=== PATIENT | male | born 1945 | race Caucasian/White ===

== ENCOUNTER 2021-08-17 20:05 | Emergency (ER) | payer MEDICARE ==
[~2021-08-17] VITALS: Ht 177.8 cm; Wt 113.4 kg
[2021-08-17] MEDS ORDERED: ROSU10TA (20:18)
[2021-08-17] MEDS ORDERED: XARELTO10 M1 (20:18)
== END 2021-08-17 23:24 | disposition home or self-care (01) ==
LOC: ER 20:05
DX: S80.02XA Contusion of left knee, initial encounter (principal); M54.50 Low back pain, unspecified; G89.29 Other chronic pain; W18.30XA Fall on same level, unspecified, initial encounter; Y92.009 Unspecified place in unspecified non-institutional (private) residence as the place of occurrence of the external cause; Z79.899 Other long term (current) drug therapy; Z79.01 Long term (current) use of anticoagulants
CPT/HCPCS: 72100; 73562-LT

== ENCOUNTER 2021-09-27 11:25 | Emergency (ER) | payer MEDICARE ==
[~2021-09-27] VITALS: Ht 177.8 cm; Wt 113.4 kg
[~2021-09-27 11:25] MED LIST: ROSU10TA; XARELTO10 M1
[2021-09-27 13:04] LABS: Influenza A, PCR NEGATIVE (NEGATIVE); Influenza B, PCR NEGATIVE (NEGATIVE); Resp Syncytial Virus, PCR NEGATIVE (NEGATIVE)
[2021-09-27 13:09] LABS: SARS-Cov-2 (COVID-19) PCR, MMC POSITIVE (NEGATIVE)
== END 2021-09-27 15:57 | disposition home or self-care (01) ==
LOC: ER 11:25
PROVIDERS: Student in an Organized Health Care Education/Training Program
DX: U07.1 COVID-19 (principal); Z79.899 Other long term (current) drug therapy; Z79.01 Long term (current) use of anticoagulants; I10 Essential (primary) hypertension; E11.9 Type 2 diabetes mellitus without complications; E66.3 Overweight; Z68.35 Body mass index [BMI] 35.0-35.9, adult; Z28.310 Unvaccinated for COVID-19
CPT/HCPCS: 0241U; 36415; J7030

== ENCOUNTER → 2021-10-17 | Outpatient (CLI) | payer MEDICARE ==
[2021-10-18 12:33] LABS: Stool Occult Bld Immuno 1 Negative (NEGATIVE)
== END | disposition home or self-care (01) ==
LOC: LAB 19:12 → LAB SHORT 19:12
PROVIDERS: Family Medicine
DX: Z12.11 Encounter for screening for malignant neoplasm of colon (principal)
CPT/HCPCS: G0328

== ENCOUNTER 2022-06-27 11:39 | Emergency (ER) | payer OTHER ==
[~2022-06-27] VITALS: Ht 167.6 cm; Wt 127.0 kg
[2022-06-27 11:48] VITALS: BP 135/77
== END 2022-06-27 12:30 | disposition left against medical advice (07) ==
LOC: ER 11:39
DX: R00.1 Bradycardia, unspecified (principal)
CPT/HCPCS: 71046; 99284-25

== ENCOUNTER 2022-12-18 13:14 | Emergency (ER) | payer OTHER ==
[~2022-12-18] VITALS: Ht 177.8 cm; Wt 113.4 kg
[2022-12-18 13:43] VITALS: BP 146/81
[2022-12-18 14:30] LABS: Source, Urine Clean Catch
[2022-12-18 14:38] LABS: Appearance, Urine Clear (Clear); Bilirubin, Urine Neg (Neg); Blood, Urine Neg (Neg); Color, Urine Yellow (P-Yellow); Glucose Qualitative, Urine Neg (Neg); Ketones, Urine Neg (Neg); Leukocyte Esterase, Urine Neg (Neg); Nitrite, Urine Neg (Neg); Protein, Urine Neg (Neg); Urobilinogen, Urine NORM (Normal)
== END 2022-12-18 15:20 | disposition home or self-care (01) ==
LOC: ER 13:14
PROVIDERS: Student in an Organized Health Care Education/Training Program
DX: R35.0 Frequency of micturition (principal); R30.0 Dysuria; Z79.01 Long term (current) use of anticoagulants; Z79.899 Other long term (current) drug therapy
CPT/HCPCS: 81003; 99283

== ENCOUNTER 2024-04-22 17:30 | Inpatient (IN) | payer OTHER ==
[~2024-04-22] VITALS: Ht 177.8 cm; Wt 116.0 kg
[~2024-04-22 17:30] MED LIST changes: -ASPI81CH PO; -CAPSAICIN60 G1 TOP; -CIPR500 PO; -DOCU100 PO; -Flomax0.4 MG PO; -METO100 PO; -MIRALAX17 GM PO; -OXYB5; -OXYC5; -OXYC5 PO; -PHENA200; -PREDNISONE PO; -VISBIOME 112.51 EACH PO; -Vitamin D1000 UNI1 PO
[2024-04-22] MEDS ORDERED: NS 1,000 ML IV SCH ×2 (17:55→19:55)
[2024-04-22 18:05] LABS: BASOPHILS ABSOLUTE AUTO 0.06 K/mm3 (0.00-0.23); BASOPHILS PERCENT AUTO 0 % (0-2); EOSINOPHILS ABSOLUTE AUTO 0.02 K/mm3 (0.00-0.68); EOSINOPHILS PERCENT AUTO 0 % (0-6); Hemoglobin 15.2 g/dL (13.5-17.5); IMMATURE GRAN ABSOLUTE AUTO 0.09 K/mm3 (0.00-0.10); IMMATURE GRAN PERCENT AUTO 1 % (0-1); LYMPHOCYTES ABSOLUTE AUTO 0.67 K/mm3 (0.84-5.20); LYMPHOCYTES PERCENT AUTO 4 % (21-46); MONOCYTES ABSOLUTE AUTO 1.07 K/mm3 (0.16-1.47); MONOCYTES PERCENT AUTO 6 % (4-13); Mean Corpuscular HGB 29.3 pg (26.0-34.0); Mean Corpuscular Volume 89 fL (80-100); Mean Platelet Volume 10.4 fL (9.1-12.4); NEUTROPHILS PERCENT AUTO 89 % (41-73); Platelet Count 241 K/mm3 (150-400); RDW Standard Deviation 42.3 fL (35.1-46.3); Red Blood Cell Count 5.19 M/mm3 (4.30-5.90); White Blood Cell Count 17.41 K/mm3 (4.00-11.30)
[2024-04-22 18:20] LABS: Albumin, Blood 3.4 g/dL (3.4-5.0); Albumin/Globulin Ratio 0.9 (0.8-1.8); Bilirubin, Total 0.7 mg/dL (0.1-1.0); Bun/Creatinine Ratio 16.9 (12.0-20.0); Calcium, Blood 8.6 mg/dL (8.5-10.1); Creatinine, Blood 0.77 mg/dL (0.60-1.20); Globulin, Blood 3.8 g/dL (2.2-4.0); Potassium, Blood 4.4 mmol/L (3.5-5.5); Total Protein, Blood 7.2 g/dL (6.4-8.2)
[2024-04-22 19:03] LABS: Influenza A, PCR NEGATIVE (NEGATIVE); Influenza B, PCR NEGATIVE (NEGATIVE); Resp Syncytial Virus, PCR NEGATIVE (NEGATIVE); SARS-Cov-2 (COVID-19) PCR, MMC NEGATIVE (NEGATIVE)
[2024-04-22 19:18] LABS: Source, Urine Clean Catch
[2024-04-22] MEDS ORDERED: CefTRIAXone Sodium 2,000 MG in NS 100 ML IV ONE (19:20)
[2024-04-22 19:28] LABS: Appearance, Urine Hazy (Clear); Bilirubin, Urine Neg (Neg); Blood, Urine 5+ (Neg); Color, Urine Yellow (P-Yellow); Glucose Qualitative, Urine 3+ (Neg); Ketones, Urine Neg (Neg); Leukocyte Esterase, Urine 3+ (Neg); Nitrite, Urine Pos (Neg); Protein, Urine 3+ (Neg); Urobilinogen, Urine NORM (Normal)
[2024-04-22] MEDS ORDERED: Albuterol 2.5 MG/3 ML VIAL INH SCH (19:35)
[2024-04-22] MEDS ORDERED: Ipratropium Bromide INH 0.02% 0.5 mg/2.5ML Vial INH SCH (19:35)
[2024-04-22] MEDS ORDERED: MethylPREDNISolone Sod Succ 125 MG Vial IV ONE (19:40)
[2024-04-22] MEDS ORDERED: Azithromycin 500 MG in NS 250 ML IV ONE (19:45)
[2024-04-22 19:47] LABS: Squamous Epithelial Cells Few /hpf (Few)
[2024-04-22 19:48] LABS: Bacteria Mod /hpf
[2024-04-22 19:49] LABS: White Blood Cells, Urine 50-100 /hpf (0-5)
[2024-04-22 19:50] LABS: Base Excess Venous 0.7 mmol/L; Bicarbonate Venous 24.3 mmol/L (24.0-30.0); PCO2 Venous 37.8 mmHg (38-42); pH Blood Venous 7.43 (7.34-7.37)
[2024-04-22] MEDS ORDERED: Ipratropium/Albuterol SulF 2.5-0.5MG/3 ML Amp INH SCH (21:00)
[2024-04-22] MEDS ORDERED: Insulin Regular 100 UNIT/ML 10ML Vial SC SCH (21:00)
[2024-04-22] MEDS ORDERED: Magnesium Hydroxide Conc 10 ML UDC PO PRN (21:05)
[2024-04-22] MEDS ORDERED: FLU VACC TS2024-25(6MOS UP)/PF 45 MCG/0.5 ML SYRINGE IM ONE (21:05)
[2024-04-22 23:15] VITALS: BP 130/65
[2024-04-22] MEDS ORDERED: OXYB5 (23:49)
[2024-04-22] MEDS ORDERED: OXYC5 (23:50)
[2024-04-23] VITALS (11 sets, daily range): BP systolic 114–154; BP diastolic 62–96
[2024-04-23] MEDS ORDERED: MethylPREDNISolone Sod Succ 40 MG VIAL IV SCH (04:00)
[2024-04-23 04:42] LABS: BASOPHILS ABSOLUTE AUTO 0.03 K/mm3 (0.00-0.23); BASOPHILS PERCENT AUTO 0 % (0-2); EOSINOPHILS PERCENT AUTO 0 % (0-6); Hematocrit 44.3 % (37.0-53.0); Hemoglobin 14.3 g/dL (13.5-17.5); IMMATURE GRAN ABSOLUTE AUTO 0.11 K/mm3 (0.00-0.10); IMMATURE GRAN PERCENT AUTO 1 % (0-1); LYMPHOCYTES ABSOLUTE AUTO 0.64 K/mm3 (0.84-5.20); LYMPHOCYTES PERCENT AUTO 4 % (21-46); MONOCYTES PERCENT AUTO 2 % (4-13); Mean Corpuscular HGB 29.3 pg (26.0-34.0); Mean Corpuscular HGB Conc 32.3 g/dL (31.5-36.5); Mean Corpuscular Volume 91 fL (80-100); NEUTROPHILS ABSOLUTE AUTO 16.87 K/mm3 (1.96-9.15); NEUTROPHILS PERCENT AUTO 94 % (41-73); Platelet Count 228 K/mm3 (150-400); RDW Coefficient Variation 13.2 % (11.7-14.2); RDW Standard Deviation 44.1 fL (35.1-46.3); Red Blood Cell Count 4.88 M/mm3 (4.30-5.90); White Blood Cell Count 17.95 K/mm3 (4.00-11.30)
[2024-04-23 05:06] LABS: Albumin, Blood 3.3 g/dL (3.4-5.0); Albumin/Globulin Ratio 0.8 (0.8-1.8); Bilirubin, Total 0.7 mg/dL (0.1-1.0); Bun/Creatinine Ratio 20.6 (12.0-20.0); Calcium, Blood 8.4 mg/dL (8.5-10.1); Creatinine, Blood 0.73 mg/dL (0.60-1.20); Globulin, Blood 3.9 g/dL (2.2-4.0); Potassium, Blood 4.5 mmol/L (3.5-5.5); Total Protein, Blood 7.2 g/dL (6.4-8.2)
--- NOTE | 2024-04-23 06:19 | NUR ---
SHIFT SUMMARY PT HAS BEEN SLEEPING SINCE ADMISSION,USED HIS HOME CPAP WHILE SLEEPING.A&O X3 BUT FORGETFUL.DILTIAZEM GTT AT 15ML/HR,HR 76-114BPM.BP STABLE.PT DENIES PAIN,DENIES NEEDS.CALL LIGHT AND PT'S ITEMS WITHIN REACH.WILL GIVE REPORT TO DAYSHIFT NURSE FOR CONTINUITY OF CARE.
[2024-04-23] MEDS ORDERED: ALBU90OI INH (07:54)
[2024-04-23] MEDS ORDERED: ASPI81CH PO (07:55)
[2024-04-23] MEDS ORDERED: CAPSAICIN60 G1 TOP (07:55)
[2024-04-23] MEDS ORDERED: Vitamin D1000 UNI1 PO (07:56)
[2024-04-23] MEDS ORDERED: METF500 PO (07:56)
[2024-04-23] MEDS ORDERED: OXYC5 PO (07:57)
[2024-04-23] MEDS ORDERED: Flomax0.4 MG PO (07:58)
[2024-04-23] MEDS ORDERED: PHENA200 (07:58)
[2024-04-23] MEDS ORDERED: Metoprolol Tartrate 25 MG Tab PO SCH (09:00)
[2024-04-23] MEDS ORDERED: Tamsulosin HCl 0.4 MG Cap PO SCH (09:00)
[2024-04-23] MEDS ORDERED: Aspirin 81 MG Chew PO SCH (09:00)
[2024-04-23] MEDS ORDERED: Lactobacil 2-S.Thermo-Bifido 1 1 Cap PO SCH (09:00)
[2024-04-23] MEDS ORDERED: Cholecalciferol 1000 Unit Tablet (=25MCG) PO SCH (09:00)
[2024-04-23] MEDS ORDERED: Enoxaparin 40 MG/0.4 ML SYR SC SCH (09:00)
[2024-04-23] MEDS ORDERED: OxyCODONE HCL 5 MG TAB PO PRN (09:00)
--- NOTE | 2024-04-23 13:01 | NUR ---
DILTIAZEM STOPPED AT 1300. HR 65
[2024-04-23] MEDS ORDERED: CefTRIAXone Sodium 2,000 MG in NS 100 ML IV SCH (14:00)
--- NOTE | 2024-04-23 17:51 | NUR ---
SHIFT SUMMARY; ASSUMED CARE AT 0700 WITH JOSUÉ CAPONE RN. A/A/OX4 DURING SHIFT. CPAP WHEN SLEEPING. FAMILY AT BEDSIDE DURING SHIFT. INSULIN PER EMAR. REPOSITIONS IN BED WITH ASSISTANCE, PURWICK IN PLACE. DEBORA LAMB DC'Barney TODAY AT, PO METOPROLOL STARTED. AFIB 80-90. WILL CONTINUE TO MONITOR AND TREAT UNTIL REPORT GIVEN TO NOC SHIFT RN TO ASSUME CARE.
--- NOTE | 2024-04-23 19:31 | NUR ---
ASSUMPTION OF CARE ASSUMED PT'S CARE AT 1900,BEDSIDE REPORT COMPLETED.PT LAYING IN BED,APPEARS TO BE SLEEPING WITH THE CPAP ON.OPENS EYES UPON THIS NURSE ENTERING THE ROOM.PT DENIES PAIN,DENIES NEEDS.PLAN OF CARE REVIEWED.CALL LIGHT AND PT'S ITEMS WITHIN REACH,DANISHA CONTINUE TO MONITOR.
[2024-04-23] MEDS ORDERED: CefTRIAXone Sodium 1,000 MG in NS 100 ML IV SCH (20:00)
[2024-04-23] MEDS ORDERED: Azithromycin 500 MG in NS 250 ML IV SCH (20:00)
[2024-04-24] VITALS (7 sets, daily range): BP systolic 107–130; BP diastolic 69–95
[2024-04-24 04:06] LABS: Hematocrit 40.6 % (37.0-53.0); Hemoglobin 13.4 g/dL (13.5-17.5); Mean Corpuscular HGB 29.6 pg (26.0-34.0); Mean Corpuscular Volume 90 fL (80-100); Mean Platelet Volume 10.6 fL (9.1-12.4); Platelet Count 257 K/mm3 (150-400); RDW Coefficient Variation 13.1 % (11.7-14.2); Red Blood Cell Count 4.53 M/mm3 (4.30-5.90); White Blood Cell Count 21.64 K/mm3 (4.00-11.30)
--- NOTE | 2024-04-24 06:37 | NUR ---
PT SLEPT MOST OF THE NIGHT,USED HOME CPAP WHILE SLEEPING.HR AND BP WNL.PT DENIES PAIN,DENIES NEEDS AT THIS TIME.CALL LIGHT AND PT'S ITEMS WITHIN REACH.WILL GIVE REPORT TO DAYSHIFT NURSE FOR CONTINUITY OF CARE.
[2024-04-24] MEDS ORDERED: Metoprolol Tartrate 1 MG/ML 5 ML VIAL IV PRN (09:00)
[2024-04-24] MEDS ORDERED: Metoprolol Tartrate 50 MG Tab PO SCH (09:00)
[2024-04-24] MEDS ORDERED: Metoprolol Tartrate 1 MG/ML 5 ML VIAL IV ONE (09:00)
[2024-04-24] MEDS ORDERED: Insulin NPH 100 Unit / ML 10ML Vial SC ONE (12:25)
--- NOTE | 2024-04-24 17:17 | NUR ---
SHIFT SUMMARY: ASSUMED CARE AT 0700. A&OX4. AFIB 100'S-120'S. METOPROLOL DOSE INCREASE TO 50 MG AND PRN LOPRESOR ORDERED BY DR. AJRAMILLO FOR HR SUSTAINED OVER 120. PT HR RESPONSE TO 50 MG METOPROLOL AFIB 80'S-110'S DURING SHIFT. BREATHING TREATMENTS PRN. CPAP WHILE SLEEPING. WICKING SYSTEM IN PLACE FOR INCONTINENCE. PT C/O OF CONSTIPATION. PT REPORTS LAST KNOWN BM OF ONE WEEK. TELEPHONE CALL TO DR. JARAMILLO FOR BOWEL MEDS ORDERED. BLOOD SUGARS REMAINED ELEVATED DURING. SLIDING SCALE PER EMAR. ONE TIME NPH 10 UNITS GIVEN. PT UP IN CHAIR WITH ONE PERSON ASSIST. BED BATH COMPLETED TODAY WITH GOWN AND LINEN CHANGE. WILL CONTINUE TO MONITOR AND TREAT UNTIL REPORT IS GIVEN TO NOC SHIFT.
[2024-04-24] MEDS ORDERED: Docusate Sodium 100 MG Cap PO SCH (17:20)
--- NOTE | 2024-04-24 19:35 | NUR ---
ASSUMPTION OF CARE ASSUMED PT'S CARE AT 1900,BEDSIDE REPORT COMPLETED.PT SITTING UP IN CHAIR.PT ASSISTED TO THE BATHROOM WITH ONE ASSIST AND A WALKER.PT'S HR ELEVATED AT 130-160'S WHILE IN THE TOILET.PT HAD A BOWEL MOVEMENT AND BACK TO CHAIR.HR DOWN TO 98-120'S.PT DENIES CHEST PAIN,DENIES SOB.PLAN OF CARE REVIEWED.CALL LIGHT AND PT'S ITEMS WITHIN REACH,CHAIR ALARM IN USE.DENIES NEEDS AT THIS TIME,WILL CONTINUE TO MONITOR.
[2024-04-25] VITALS (8 sets, daily range): BP systolic 116–144; BP diastolic 67–99
[2024-04-25 03:51] LABS: Hematocrit 39.7 % (37.0-53.0); Hemoglobin 13.3 g/dL (13.5-17.5); Mean Corpuscular HGB 29.5 pg (26.0-34.0); Mean Corpuscular HGB Conc 33.5 g/dL (31.5-36.5); Mean Corpuscular Volume 88 fL (80-100); Mean Platelet Volume 10.3 fL (9.1-12.4); Platelet Count 251 K/mm3 (150-400); RDW Coefficient Variation 13.2 % (11.7-14.2); RDW Standard Deviation 42.8 fL (35.1-46.3); Red Blood Cell Count 4.51 M/mm3 (4.30-5.90); White Blood Cell Count 8.77 K/mm3 (4.00-11.30)
--- NOTE | 2024-04-25 06:29 | NUR ---
PT HAD TO GET OUT OF BED FREQUENTLY TO URINATE.PT'S HR WITH ACTIVITY WOULD GO UPTO 170.PT ALSO REPORTED SOB WITH ACTIVITY.PRN LOPRESSOR 5MG IV GIVEN AT 2239,HR CAME DOWN TO 98-130 IRREGULAR.HR DID NOT SUSTAIN AT 130.PLACED MALE PUREWICK AND PT WAS ABLE TO SLEEP.TOLERATED THE CPAP.PT STILL SLEEPING AT THIS TIME.NO S/S OF PAIN/DISCOMFORT NOTED.WILL GIVE REPORT TO DAYSOHFT NURSE FOR CONTINUITY OF CARE.CALL LIGHT AND PT'S ITEMS WITHIN REACH.
[2024-04-25] MEDS ORDERED: Metoprolol Tartrate 50 MG Tab PO SCH ×2 (09:00→21:00)
[2024-04-25] MEDS ORDERED: Polyethylene Glycol 3350 17 gm PO SCH (09:00)
--- NOTE | 2024-04-25 18:11 | NUR ---
SHIFT SUMMARY: ASSUMED CARE AT 0700. A/OX4. INCREASED HR WITH EXERCERTION. AFIB 100-170S. PT REPORTED SOB AND FEELING DIZZY. 5 MG LOPRESSOR PUSH GIVEN. HR DECREASED TO 90'S AND PT REPORTS FEELING BETTER. PO METOPROLOL INCREASED. CPAP USED WHILE SLEEPING. WICKING SYSTEM IN USE FOR INCONTINENCE. REPOSITIONING SELF IN BED AND ONE PERSON ASSIST TO CHAIR. BATH GIVEN WITH GOWN AND LINEN CHANGE. WILL CONTINUE TO MONITOR AND TREAT UNTIL REPORT GIVEN TO [facility] NURSE.
--- NOTE | 2024-04-25 19:29 | NUR ---
ASSUMPTION OF CARE ASSUMED CARE OF PT AT 1900,PT SITTING UP IN CHAIR,DINNER TRAY INFRONT OF HIM.PT DOZING OFF,OPENS EYES TO VERBAL COMMAND.PT DENIES PAIN,DENIES NEEDS.PLAN OF CARE REVIEWED.CALL LIGHT AND PT'S ITEMS WITHIN REACH.CHAIR ALARM IN USE.WILL CONTINUE TO MONITOR.
[2024-04-26 00:13] VITALS: BP 128/89
[2024-04-26 04:23] VITALS: BP 116/57
--- NOTE | 2024-04-26 06:44 | NUR ---
PT REPORTS THAT HE SLEPT WELL, MORE ALERT THIS MORNING.PT'S HR BETTER CONTROLLED WITH THE 100MG OF METOPROLOL PO.HR IRREGULAR 78-112,REMAINED <100 MOST OF THE NIGHT.PT DENIES PAIN,DENIES NEEDS.WILL GIVE REPORT TO DAYSHIFT NURSE FOR CONTINUITY OF CARE.CALL LIGHT AND PT'S ITEMS WITHIN REACH.
[2024-04-26 08:37] VITALS: BP 133/64
[2024-04-26 12:19] VITALS: BP 110/80
[2024-04-26] MEDS ORDERED: DOCU100 PO (14:24)
[2024-04-26] MEDS ORDERED: METO100 PO (14:29)
[2024-04-26] MEDS ORDERED: MIRALAX17 GM PO (14:30)
[2024-04-26] MEDS ORDERED: VISBIOME 112.51 EACH PO (14:32)
[2024-04-26] MEDS ORDERED: CIPR500 PO (14:32)
--- NOTE | 2024-04-26 15:12 | NUR ---
DISCHARGE SUMMARY PT A&Ox4, CALLS AND COMMUNICATES NEEDS APPROPRIATELY. BP STABLE, AFIB 90-110'S, DENIES CP/PRESSURE. SpO2> 92% RA, DENIES SOB. WEARS HOME CPAP WHILE SLEEPING. 1 ASSIST WITH FWW. NO C/O PAIN. DISCHARGE INSTRUCTIONS PROVIDED WITH FAMILY AT BEDSIDE. ALL PT BELONGINGS GATHERED. PT TAKEN OUT WITH HOME WHEELCHAIR BY CLINICAL STAFF AT APPROXIMATELY 1500.
[2024-05-01] MEDS ORDERED: PREDNISONE PO (13:17)
== END 2024-04-26 15:04 | disposition home health service (06) | DRG 871 ==
LOC: ER 17:30 → PCU 21:03 → ERHOLD 21:03 → PCU 23:03
PROVIDERS: Internal Medicine; Student in an Organized Health Care Education/Training Program; ADMIT Internal Medicine
DX: A41.59 Other Gram-negative sepsis (principal); G93.41 Metabolic encephalopathy; J44.1 Chronic obstructive pulmonary disease with (acute) exacerbation; N39.0 Urinary tract infection, site not specified; I48.20 Chronic atrial fibrillation, unspecified; Z66 Do not resuscitate; E11.40 Type 2 diabetes mellitus with diabetic neuropathy, unspecified; I45.10 Unspecified right bundle-branch block; E78.5 Hyperlipidemia, unspecified; E11.65 Type 2 diabetes mellitus with hyperglycemia; B96.4 Proteus (mirabilis) (morganii) as the cause of diseases classified elsewhere; Z96.89 Presence of other specified functional implants; Z87.891 Personal history of nicotine dependence; Z85.51 Personal history of malignant neoplasm of bladder; Z79.51 Long term (current) use of inhaled steroids; Z79.84 Long term (current) use of oral hypoglycemic drugs; Z79.52 Long term (current) use of systemic steroids; Z79.2 Long term (current) use of antibiotics; Z79.899 Other long term (current) drug therapy; Z98.890 Other specified postprocedural states
CPT/HCPCS: 0241U; 36415; 71045; 76770; 80053; 81001; 82803; 82947; 83036; 83605; 83880; 84484; 85025; 85027; 87040; 87077; 87086; 87186; 93005; 93010; 94640; 94644; 94664; 94762; 96361; 96365; 96367; 96375; 99285-25; A6590; A9270; J0456; J0696; J1650; J1815; J2919; J7030; J7050

== ENCOUNTER → 2024-04-22 | Outpatient (CLI) | payer OTHER ==
[~2024-04-22] MED LIST changes: +ALBU90OI INH; +ASPI81CH PO; +AZIT250 PO; +CAPSAICIN60 G1 TOP; +CIPR500 PO; +DOCU100 PO; +Flomax0.4 MG PO; +METF500 PO; +METO100 PO; +MIRALAX17 GM PO; +OXYB5; +OXYC5; +OXYC5 PO; +PHENA200; +PRED20 PO; +PREDNISONE PO; +TAMS.4ER PO; +VISBIOME 112.51 EACH PO; +Vitamin D1000 UNI1 PO
== END ==
LOC: LAB SHORT 12:05 → LAB 12:05
DX: R30.0 Dysuria (principal)
CPT/HCPCS: 87077; 87086; 87186

== ENCOUNTER 2024-04-28 00:22 | Inpatient (IN) | payer OTHER ==
[~2024-04-28] VITALS: Ht 177.8 cm; Wt 110.3 kg
[~2024-04-28 00:22] MED LIST changes: +ASPI81CH PO; +CAPSAICIN60 G1 TOP; +CIPR500 PO; +DOCU100 PO; +Flomax0.4 MG PO; +METO100 PO; +MIRALAX17 GM PO; +OXYB5; +OXYC5; +OXYC5 PO; +PHENA200; +VISBIOME 112.51 EACH PO; +Vitamin D1000 UNI1 PO
[2024-04-28] MEDS ORDERED: Ipratropium/Albuterol SulF 2.5-0.5MG/3 ML Amp INH ONE (01:10)
[2024-04-28] MEDS ORDERED: Acetaminophen 500 MG Tab PO ONE (01:10)
[2024-04-28] MEDS ORDERED: NS 1,000 ML IV SCH ×2 (01:10→08:30)
[2024-04-28 01:18] LABS: BASOPHILS ABSOLUTE AUTO 0.06 K/mm3 (0.00-0.23); BASOPHILS PERCENT AUTO 0 % (0-2); EOSINOPHILS PERCENT AUTO 1 % (0-6); Hematocrit 47.4 % (37.0-53.0); Hemoglobin 15.9 g/dL (13.5-17.5); IMMATURE GRAN ABSOLUTE AUTO 0.12 K/mm3 (0.00-0.10); IMMATURE GRAN PERCENT AUTO 1 % (0-1); LYMPHOCYTES ABSOLUTE AUTO 0.99 K/mm3 (0.84-5.20); LYMPHOCYTES PERCENT AUTO 6 % (21-46); MONOCYTES ABSOLUTE AUTO 1.09 K/mm3 (0.16-1.47); MONOCYTES PERCENT AUTO 7 % (4-13); Mean Corpuscular HGB 29.2 pg (26.0-34.0); Mean Corpuscular HGB Conc 33.5 g/dL (31.5-36.5); Mean Corpuscular Volume 87 fL (80-100); Mean Platelet Volume 11.2 fL (9.1-12.4); NEUTROPHILS ABSOLUTE AUTO 14.21 K/mm3 (1.96-9.15); NEUTROPHILS PERCENT AUTO 86 % (41-73); Platelet Count 242 K/mm3 (150-400); RDW Coefficient Variation 12.8 % (11.7-14.2); RDW Standard Deviation 40.8 fL (35.1-46.3); Red Blood Cell Count 5.44 M/mm3 (4.30-5.90); White Blood Cell Count 16.57 K/mm3 (4.00-11.30)
[2024-04-28 01:23] LABS: Base Excess Venous 2.7 mmol/L; Bicarbonate Venous 25.4 mmol/L (24.0-30.0); PCO2 Venous 47.1 mmHg (38-42); pH Blood Venous 7.38 (7.34-7.37)
[2024-04-28 01:55] LABS: Albumin, Blood 3.2 g/dL (3.4-5.0); Albumin/Globulin Ratio 0.8 (0.8-1.8); Bun/Creatinine Ratio 25.1 (12.0-20.0); Creatinine, Blood 0.68 mg/dL (0.60-1.20); Globulin, Blood 4.2 g/dL (2.2-4.0); Phosphorus, Blood 2.9 mg/dL (2.5-4.9); Potassium, Blood 5.3 mmol/L (3.5-5.5); Thyroid Stimulating Hormone 1.34 uIU/mL (0.360-4.800); Total Protein, Blood 7.4 g/dL (6.4-8.2)
[2024-04-28 02:10] LABS: CORONAVIRUS COVID-19 AG Negative (NEGATIVE); INFLUENZA A AG Negative (NEGATIVE); INFLUENZA B AG Negative (NEGATIVE)
[2024-04-28 06:05] LABS: Source, Urine Clean Catch
[2024-04-28 06:09] LABS: Appearance, Urine Hazy (Clear); Bilirubin, Urine Neg (Neg); Blood, Urine 4+ (Neg); Color, Urine Yellow (P-Yellow); Glucose Qualitative, Urine 2+ (Neg); Ketones, Urine 2+ (Neg); Leukocyte Esterase, Urine 3+ (Neg); Nitrite, Urine Neg (Neg); Protein, Urine 3+ (Neg); Urobilinogen, Urine NORM (Normal)
[2024-04-28 06:37] LABS: Bacteria Mod /hpf; Squamous Epithelial Cells Many /hpf (Few); White Blood Cells, Urine 25-50 /hpf (0-5)
[2024-04-28] MEDS ORDERED: Ipratropium/Albuterol SulF 2.5-0.5MG/3 ML Amp INH SCH ×2 (08:30→10:00)
[2024-04-28] MEDS ORDERED: FLU VACC TS2024-25(6MOS UP)/PF 45 MCG/0.5 ML SYRINGE IM SCH (08:35)
[2024-04-28] MEDS ORDERED: Polyethylene Glycol 3350 17 gm PO PRN (08:50)
[2024-04-28] MEDS ORDERED: PredniSONE 20 MG Tab PO SCH (09:00)
[2024-04-28] MEDS ORDERED: Metoprolol Tartrate 50 MG Tab PO SCH (09:00)
[2024-04-28] MEDS ORDERED: Aspirin 81 MG Chew PO SCH (09:00)
[2024-04-28] MEDS ORDERED: Tamsulosin HCl 0.4 MG Cap PO SCH (09:00)
[2024-04-28] MEDS ORDERED: Docusate Sodium 100 MG Cap PO SCH (09:00)
[2024-04-28] MEDS ORDERED: Lactobacil 2-S.Thermo-Bifido 1 1 Cap PO SCH (09:00)
[2024-04-28] MEDS ORDERED: CefTRIAXone Sodium 2,000 MG in NS 100 ML IV SCH (09:00)
[2024-04-28 10:01] VITALS: BP 125/85
--- NOTE | 2024-04-28 10:42 | NUR ---
ADMISSON: PT ARRIVED TO PCU 15 AT APPOX 1010. PT ALERT AND ORIENTED X3-4, ABLE TO FOLLOW COMMANDS AND MAKE NEEDS KNOWN. FORGETFUL AT TIMES, POOR HISTORIAN. BED ALARM ON FOR SAFETY. STRENGTH WEAK, EQUAL BILATERALLY. BP STABLE, HR AFIB 90'S. PT DENIES CP/PRESSURE. PULSES PALPABLE. +2 EDEMA NOTED IN BLE. AFEBRILE. PT OVERALL DIAPHORETIC. SPO2 >96% ON HOME CPAP MACHINE. LUNG SOUNDS WITH WHEEZES THROUGHOUT, RESPIRATIONS 22-26. MD AT BEDSIDE, ORDERS RECEIVED FOR DIURETIC, SEE EMAR. PURWICK IN PLACE, CONNECTED TO LOW CONTINUOUS SUCTION. PT REPOS Q2 TO MAINTIN SKIN INTEGRITY. PT ORIENTED TO ROOM AND CALL LIGHT SYSTEM. BED IN LOW, CALL LIGHT IN REACH.
[2024-04-28] MEDS ORDERED: Apixaban 5 MG Tab PO SCH (11:00)
[2024-04-28] MEDS ORDERED: Furosemide 10 MG / ML 2ML Vial IV ONE (11:00)
[2024-04-28 11:11] VITALS: BP 91/70
[2024-04-28] MEDS ORDERED: Insulin Human Lispro 100 Units/ML 3ML Syringe SC SCH (11:30)
[2024-04-28 15:00] VITALS: BP 107/80
[2024-04-28 16:57] LABS: Adenovirus Not Detected (NOT DETECT); Bordetella pertussis Not Detected (NOT DETECT); Chlamydophila pneumoniae Not Detected (NOT DETECT); Coronavirus 229E Not Detected (NOT DETECT); Coronavirus HKU1 Not Detected (NOT DETECT); Coronavirus NL63 Not Detected (NOT DETECT); Coronavirus OC43 Not Detected (NOT DETECT); Human Metapneumovirus Not Detected (NOT DETECT); Human Rhinovirus/Enterovirus Not Detected (NOT DETECT); Influenza A/2009-H1 Detected (NOT DETECT); Influenza A/H1 Not Detected (NOT DETECT); Influenza A/H3 Not Detected (NOT DETECT); Influenza B Not Detected (NOT DETECT); Mycoplasma pneumoniae Not Detected (NOT DETECT); Parainfluenza Virus 1 Not Detected (NOT DETECT); Parainfluenza Virus 2 Not Detected (NOT DETECT); Parainfluenza Virus 3 Not Detected (NOT DETECT); Parainfluenza Virus 4 Not Detected (NOT DETECT); Respiratory Syncytial Virus Not Detected (NOT DETECT); SARS-Cov-2 (COVID-19), BioFire Not Detected (NOT DETECT)
--- NOTE | 2024-04-28 17:01 | NUR ---
SHIFT SUMMARY NO ACUTE CHANGES FROM PREVIOUS NOTE. PT REMAINS ON HOME CPAP, BP AND HR STABLE, AFEBRILE, LUNG SOUNDS W/ WHEEZES. PT DIURESING WELL, PUREWICK REMAINS IN PLACE. BED IN LOW, CALL LIGHT IN REACH, WILL REPORT TO ONCOMING RN.
[2024-04-28 19:40] VITALS: BP 117/65
[2024-04-28 23:21] VITALS: BP 124/71
--- NOTE | 2024-04-29 00:03 | NUR ---
SPOKE WITH DR. HOFFMAN REGARDING PATIENT HEART RATE. PT HAD SETTLED IN THE 90s-100s RANGE FOR SEVERAL HOURS POST METOPROLOL ADMINISTRATION. SINCE RECEIVING BREATHING TREATEMENT AT ABOUT ~2330, PT HAS HAD MORE RUNS OF RVR WITH RATE REACHING HIGH 150s AT TIMES. DR. HOFFMAN DIRECTED TO CONTINUE TO MONITOR FOR TIME BEING UNLESS HEART RATE STARTS TO SUSTAIN ABOVE 130 FOR EXTENDED PERIOD OF TIME. OTHERWISE PATIENT IS CURRENTLY PRIMARILY RUNNING LOW 100s WITH SOME BRIEF EPISODES OF RVR. ENCOURAGED HOLDING NEXT BREATHING TREATMENT UNLESS NECESSARY TO PREVENT FURTHER RVR. NOTED. CONTINUING TO MONITOR.
--- NOTE | 2024-04-29 02:59 | NUR ---
SPOKE AGAIN WITH DR. HOFFMAN REGARDING PATIENT HEART RATE. APPEARS TO BE FOLLOWING TREND OF SETTLING IN LOW 100s FOR PERIODS OF TIME BEFORE HAVING EPISODES OF RVR WHERE HR WILL REACH HIGH 160s BEFORE COMING BACK DOWN TO THE 130s FOR SOME TIME BEFORE AGAIN FALLING TO 100s BEFORE REPEATING PATTERN. PT HAS BEEN FOLLOWING THIS RHYTHM SINCE ABOUT 0 WHEN HE RECEIVED BREATHING TREATMENT. DR. HOFFMAN ELECTS TO ALLOW FOR MORE TIME FOR BREATHING TREATMENT EFFECTS TO DIMINISH BEFORE USING FURTHER PHARMACOLOGICAL MANAGEMENT FOR PT HEART RATE. PT RESTING COMFORTABLY IN BED AND UPON PROMPTING REPORTS FEELING "FINE". CONTINUING TO MONITOR.
[2024-04-29] MEDS ORDERED: Metoprolol Tartrate 1 MG/ML 5 ML VIAL IV PRN (03:25)
[2024-04-29 03:32] VITALS: BP 127/62
[2024-04-29 03:52] LABS: BASOPHILS ABSOLUTE AUTO 0.03 K/mm3 (0.00-0.23); BASOPHILS PERCENT AUTO 0 % (0-2); EOSINOPHILS ABSOLUTE AUTO 0.02 K/mm3 (0.00-0.68); EOSINOPHILS PERCENT AUTO 0 % (0-6); Hematocrit 45.4 % (37.0-53.0); Hemoglobin 15.2 g/dL (13.5-17.5); IMMATURE GRAN ABSOLUTE AUTO 0.07 K/mm3 (0.00-0.10); IMMATURE GRAN PERCENT AUTO 1 % (0-1); LYMPHOCYTES ABSOLUTE AUTO 0.76 K/mm3 (0.84-5.20); LYMPHOCYTES PERCENT AUTO 8 % (21-46); MONOCYTES PERCENT AUTO 10 % (4-13); Mean Corpuscular HGB 29.3 pg (26.0-34.0); Mean Corpuscular HGB Conc 33.5 g/dL (31.5-36.5); Mean Corpuscular Volume 88 fL (80-100); Mean Platelet Volume 10.5 fL (9.1-12.4); NEUTROPHILS PERCENT AUTO 81 % (41-73); Platelet Count 266 K/mm3 (150-400); RDW Coefficient Variation 12.8 % (11.7-14.2); RDW Standard Deviation 40.9 fL (35.1-46.3); Red Blood Cell Count 5.18 M/mm3 (4.30-5.90); White Blood Cell Count 9.88 K/mm3 (4.00-11.30)
[2024-04-29 04:13] LABS: Albumin/Globulin Ratio 0.8 (0.8-1.8); Bilirubin, Total 0.5 mg/dL (0.1-1.0); Bun/Creatinine Ratio 25.4 (12.0-20.0); Calcium, Blood 8.3 mg/dL (8.5-10.1); Creatinine, Blood 0.75 mg/dL (0.60-1.20); Globulin, Blood 3.7 g/dL (2.2-4.0); Magnesium, Blood 2.2 mg/dL (1.6-2.4); Potassium, Blood 4.3 mmol/L (3.5-5.5); Total Protein, Blood 6.7 g/dL (6.4-8.2)
--- NOTE | 2024-04-29 05:12 | NUR ---
SHIFT SUMMARY. SHIFT HAS GONE WELL OVERALL. PT IS AOX3-4, COOPERATIVE, PLEASANT, ABLE TO MAKE NEEDS KNOWN. HAS BEEN ABLE TO REST COMFORTABLY THROUGHOUT MOST OF SHIFT. HEART RATE HAS BEEN AN ISSUE THROUGHOUT SHIFT WITH DEGREE OF MANAGEMENT FLUCTUATING. SEE PREVIOUS NOTES FOR EXPANDED DETAILS. MOST RECENTLY, DR. HOFFMAN ORDERED 5 MG IV LOPRESSOR FOR MANAGEMENT WHICH THUS FAR HAS WORKED WELL IN MANAGING HEART RATE TO MORE ACCEPTABLE LEVELS. PT CONTINUES TO HAVE SOME INSTANCES OF RVR BUT LESS FREQUENT AND PRONOUNCED THUS FAR. PT HAS DENIED PAIN THROUGHOUT SHIFT. VITALS OTHERWISE STABLE. MAINTAINS ADEQUATE SATURATION ON ROOM AIR WHILE AWAKE AND CPAP WHILE SLEEPING/RESTING. BED LOCKED IN LOWEST POSITION. CALL LIGHT LEFT WITHIN REACH. CONTINUING TO MONITOR.
[2024-04-29 07:50] VITALS: BP 141/92
[2024-04-29] MEDS ORDERED: GuaiFENesin 600 MG TabCR PO SCH (09:00)
[2024-04-29] MEDS ORDERED: Enoxaparin 40 MG/0.4 ML SYR SC SCH (09:00)
--- NOTE | 2024-04-29 10:21 | NUR ---
PT CONTINUES TO HAVE TACHYCARDIA SPURTS. COARSE CRACKLES AND DYSPENEA W/ EXCERTION. THIS RN SPOKE W/ THIS MORNING BECAUSE THE NURSE THAT HAD THE PT 04/28 STATED THERE WAS TALK OF SWITCHING THE PT'S METOPROLOL TARTRATE TO SUCCINATE. ALSO, THIS RN DISCUSSED DIURETICS FOR THE PT. AT THIS TIME DR. CHRISTINE WANTS TO KEEP THE METOPROLOL AT TARTRATE SINCE HE WAS LAST D/C'D ON IT AND STARTED THE PT ON MUSINEX. SEE NOTES FOR UPDATES.
[2024-04-29 12:07] VITALS: BP 113/73
[2024-04-29] MEDS ORDERED: Insulin Human Lispro 100 Units/ML 3ML Syringe SC SCH (16:30)
[2024-04-29 16:32] VITALS: BP 122/64
--- NOTE | 2024-04-29 17:02 | NUR ---
END OF SHIFT SUMMARY THE PT IS A&OX4, 1P ASSIST W/ FWW FOR TX, AND HAS BEEN UP IN THE CHAIR FOR MEALS. HE USES THE URINAL AT BEDSIDE WITH ASSISTANCE AND MAKES HIS NEEDS KNOWN. ON TELE THE PT HAS BEEN AFIB 100'S-150'S, PROVIDER AWARE OF TACHY SPURTS. SEE PREVIOUS NOTE. BP STABLE. HE DENIES ANY ANGINA OR CHEST PRESSURE. HE HAS BEEN ON RA WHILE AWAKE AND ON THE CPAP WHILE SLEEPING. SP02> 93%. PT DOES GET SOB WITH ACTIVITY AND HAS SOME WHEEZING AFTER HE WAKES UP FROM HIS NAPS. BREATHING TREATMENTS PER RT. THE PT IS ACHS BLOOD SUGAR CHECKS AND WAS INCREASED FROM LOW TO MEDIUM SLIDING SCALE THIS EVENING. NO ACUTE EVENTS. SEE NOTES FOR ANY UPDATES.
[2024-04-29 20:42] VITALS: BP 118/73
[2024-04-30 00:16] VITALS: BP 114/65
[2024-04-30 03:42] VITALS: BP 128/81
--- NOTE | 2024-04-30 05:13 | NUR ---
SHIFT SUMMARY. SHIFT HAS BEEN UNREMARKABLE, NO ACUTE CHANGES. PT HAS BEEN ORIENTED, PLEASANT, COOPERATIVE, ABLE TO MAKE NEEDS KNOWN THROUGHOUT SHIFT. HAS BEEN ABLE TO REST COMFORTABLY THROUGHOUT ALMOST ENTIRETY OF SHIFT. NO PAIN REPORTED. VITALS STABLE. HAS BEEN RUNNING AFIB THROUGHOUT SHIFT WITH RATE SETTLING IN THE 80s-100s RANGE THROUGHOUT MOST OF SHIFT. FEW, SCATTERED RUNS OF RVR BUT MUCH LESS FREQUENT AND NOT SUSTAINED PREVIOUS SHIFT WITH THIS RN. PT REPOSITIONING INDEPENDENTLY. MAINTAINS ADEQUATE SATURATION ON ROOM AIR WHILE AWAKE, CPAP WHILE SLEEPING. CONTINENT, CALLS APPROPRIATELY FOR ASSISTANCE WITH URINAL NEEDED. BED LOCKED IN LOWEST POSITION. CALL LIGHT LEFT WITHIN REACH. CONTINUING TO MONITOR.
[2024-04-30 07:22] LABS: BASOPHILS ABSOLUTE AUTO 0.03 K/mm3 (0.00-0.23); BASOPHILS PERCENT AUTO 0 % (0-2); EOSINOPHILS ABSOLUTE AUTO 0.04 K/mm3 (0.00-0.68); EOSINOPHILS PERCENT AUTO 1 % (0-6); Hematocrit 42.2 % (37.0-53.0); Hemoglobin 14.1 g/dL (13.5-17.5); IMMATURE GRAN ABSOLUTE AUTO 0.04 K/mm3 (0.00-0.10); IMMATURE GRAN PERCENT AUTO 1 % (0-1); LYMPHOCYTES ABSOLUTE AUTO 1.49 K/mm3 (0.84-5.20); LYMPHOCYTES PERCENT AUTO 19 % (21-46); MONOCYTES ABSOLUTE AUTO 0.78 K/mm3 (0.16-1.47); MONOCYTES PERCENT AUTO 10 % (4-13); Mean Corpuscular HGB 29.4 pg (26.0-34.0); Mean Corpuscular HGB Conc 33.4 g/dL (31.5-36.5); Mean Corpuscular Volume 88 fL (80-100); Mean Platelet Volume 10.3 fL (9.1-12.4); NEUTROPHILS ABSOLUTE AUTO 5.53 K/mm3 (1.96-9.15); NEUTROPHILS PERCENT AUTO 70 % (41-73); Platelet Count 251 K/mm3 (150-400); RDW Coefficient Variation 12.8 % (11.7-14.2); RDW Standard Deviation 41.4 fL (35.1-46.3); White Blood Cell Count 7.91 K/mm3 (4.00-11.30)
[2024-04-30 07:39] LABS: Bun/Creatinine Ratio 25.9 (12.0-20.0); Calcium, Blood 8.6 mg/dL (8.5-10.1); Creatinine, Blood 0.73 mg/dL (0.60-1.20); Potassium, Blood 4.3 mmol/L (3.5-5.5)
[2024-04-30 08:40] VITALS: BP 128/80
[2024-04-30 11:14] VITALS: BP 110/81
[2024-04-30 16:22] VITALS: BP 119/63
--- NOTE | 2024-04-30 16:55 | NUR ---
SHIFT SUMMARY: PT WITH NO ACUTE EVENTS THIS SHIFT. REMAINS ALERT AND ORIENTED X4, ABLE TO FOLLOW COMMANDS AND MAKE NEEDS KNOWN. STRENGTH EQUAL BILATERALLY. BP AND HR STABLE. AFEBRILE. SPO2 >96% ON ROOM AIR, CPAP WHILE SLEEPING. LUNG SOUNDS DIM IN BASES, COARSE IN UPPER. PT WITH NON PRODUCTIVE COUGH. ABD DISTENDED, NON TENDER, BOWEL SOUNDS+. PT IND W/ URINAL AT BEDSIDE. SPOUSE AND DAUGHTER AT BEDSIDE THIS AFTERNOON, UPDATED ON PT PLAN OF CARE. POSSIBLE DISCHARGE TOMORROW PENDING PT/OT EVAL. BED IN LOW, CALL LIGHT IN REACH, WILL REPORT TO ONCOMING RN.
[2024-04-30 20:39] VITALS: BP 133/77
[2024-05-01 00:17] VITALS: BP 122/73
[2024-05-01 04:01] LABS: Hematocrit 41.2 % (37.0-53.0); Hemoglobin 13.7 g/dL (13.5-17.5); Mean Corpuscular HGB Conc 33.3 g/dL (31.5-36.5); Mean Corpuscular Volume 87 fL (80-100); Mean Platelet Volume 10.3 fL (9.1-12.4); Platelet Count 264 K/mm3 (150-400); RDW Coefficient Variation 12.6 % (11.7-14.2); RDW Standard Deviation 40.2 fL (35.1-46.3); Red Blood Cell Count 4.72 M/mm3 (4.30-5.90); White Blood Cell Count 7.67 K/mm3 (4.00-11.30)
[2024-05-01 04:17] VITALS: BP 128/88
[2024-05-01 04:25] LABS: Albumin, Blood 2.7 g/dL (3.4-5.0); Albumin/Globulin Ratio 0.8 (0.8-1.8); Bilirubin, Total 0.4 mg/dL (0.1-1.0); Bun/Creatinine Ratio 24.5 (12.0-20.0); Calcium, Blood 8.3 mg/dL (8.5-10.1); Creatinine, Blood 0.65 mg/dL (0.60-1.20); Globulin, Blood 3.4 g/dL (2.2-4.0); Total Protein, Blood 6.1 g/dL (6.4-8.2)
--- NOTE | 2024-05-01 06:44 | NUR ---
PT STABLE THROUGHOUT THE SHIFT. VITAL SIGNS STABLE, AFEBRILE. PT WORE CPAP MOST OF THE NIGHT AND TOLERATED WELL. PT AOX4, USES URINAL AT BEDSIDE INDEPENDENTLY. PT HAD GOOD URINARY OUTPUT. CHRONIC AFIB PRESENT WITH CONTROLLED RATE. PT USES CALL LIGHT APPROPRIATELY, ABLE TO MAKE NEEDS KNOWN. BED IN LOWEST POSITION WITH BRAKES ON, CALL LIGHT AND BEDSIDE TABLE IN REACH. IV SALINE LOCKED, FLUSHES WELL.
[2024-05-01 07:53] VITALS: BP 126/77
[2024-05-01 11:57] VITALS: BP 111/76
[2024-05-01] MEDS ORDERED: PREDNISONE PO ×2 (13:17)
--- NOTE | 2024-05-01 14:49 | NUR ---
DISCHARGE PT DISCHARGED AT APPROX 1415. PT, DAUGHTER, AND ALL EDUCATED ON NEW MEDS, FOLLOW UP INSTRUCTIONS, AND NEED APPOINTMENTS. ALL STATE SHE UNDERSTAND AND HAVE NO FURTHER QUESTIONS. PT IVS REMOVED BY AIDE. NO CHANGES IN ASSESSMENT PRIOR TO DC. WHEELED OUT BY AIDE AND DRIVEN HOME BY DAUGHTER.
== END 2024-05-01 14:24 | disposition home health service (06) | DRG 871 ==
LOC: ER 00:22 → PCU 08:29
PROVIDERS: Emergency Medicine; Student in an Organized Health Care Education/Training Program; ADMIT Internal Medicine
PROC: 5A09357 Assistance with Respiratory Ventilation, Less than 24 Consecutive Hours, Continuous Positive Airway Pressure (ICD-10-PCS; principal; 2024-04-28)
DX: A41.9 Sepsis, unspecified organism (principal); J96.01 Acute respiratory failure with hypoxia; N39.0 Urinary tract infection, site not specified; J44.1 Chronic obstructive pulmonary disease with (acute) exacerbation; J10.1 Influenza due to other identified influenza virus with other respiratory manifestations; I48.91 Unspecified atrial fibrillation; G47.33 Obstructive sleep apnea (adult) (pediatric); R74.01 Elevation of levels of liver transaminase levels; E66.9 Obesity, unspecified; E78.5 Hyperlipidemia, unspecified; E86.0 Dehydration; Z85.51 Personal history of malignant neoplasm of bladder; E11.40 Type 2 diabetes mellitus with diabetic neuropathy, unspecified; Z90.6 Acquired absence of other parts of urinary tract; Z87.891 Personal history of nicotine dependence; Z79.82 Long term (current) use of aspirin; Z79.84 Long term (current) use of oral hypoglycemic drugs; Z79.899 Other long term (current) drug therapy; Z68.37 Body mass index [BMI] 37.0-37.9, adult
CPT/HCPCS: 0202U; 36415; 51798; 71045; 71260; 80048; 80053; 81001; 82803; 82947; 83605; 83690; 83735; 83880; 84100; 84443; 84484; 85025; 85027; 87040; 87086; 87428-QW; 93005; 93010; 94640; 94664; 94760; 94762; 96360; 96361; 97161; 97530; 99285-25; A9270; J0696; J1940; J7030; J7512; Q9967

== ENCOUNTER 2024-05-08 18:36 | Emergency (ER) | payer OTHER ==
[~2024-05-08] VITALS: Ht 175.3 cm; Wt 117.9 kg
[~2024-05-08 18:36] MED LIST changes: +PREDNISONE PO
[2024-05-08 19:12] LABS: BASOPHILS ABSOLUTE AUTO 0.05 K/mm3 (0.00-0.23); BASOPHILS PERCENT AUTO 0 % (0-2); EOSINOPHILS ABSOLUTE AUTO 0.07 K/mm3 (0.00-0.68); EOSINOPHILS PERCENT AUTO 1 % (0-6); Hematocrit 45.1 % (37.0-53.0); Hemoglobin 14.8 g/dL (13.5-17.5); IMMATURE GRAN ABSOLUTE AUTO 0.04 K/mm3 (0.00-0.10); IMMATURE GRAN PERCENT AUTO 0 % (0-1); LYMPHOCYTES ABSOLUTE AUTO 1.63 K/mm3 (0.84-5.20); LYMPHOCYTES PERCENT AUTO 14 % (21-46); MONOCYTES ABSOLUTE AUTO 0.88 K/mm3 (0.16-1.47); MONOCYTES PERCENT AUTO 8 % (4-13); Mean Corpuscular HGB 29.2 pg (26.0-34.0); Mean Corpuscular HGB Conc 32.8 g/dL (31.5-36.5); Mean Corpuscular Volume 89 fL (80-100); Mean Platelet Volume 10.4 fL (9.1-12.4); NEUTROPHILS ABSOLUTE AUTO 8.82 K/mm3 (1.96-9.15); NEUTROPHILS PERCENT AUTO 77 % (41-73); Platelet Count 212 K/mm3 (150-400); RDW Coefficient Variation 13.1 % (11.7-14.2); RDW Standard Deviation 42.5 fL (35.1-46.3); Red Blood Cell Count 5.06 M/mm3 (4.30-5.90); White Blood Cell Count 11.49 K/mm3 (4.00-11.30)
[2024-05-08 19:37] LABS: Albumin/Globulin Ratio 0.8 (0.8-1.8); Bilirubin, Total 0.4 mg/dL (0.1-1.0); Bun/Creatinine Ratio 17.2 (12.0-20.0); Calcium, Blood 9.4 mg/dL (8.5-10.1); Creatinine, Blood 0.64 mg/dL (0.60-1.20); Potassium, Blood 4.9 mmol/L (3.5-5.5)
[2024-05-08] MEDS ORDERED: Prednisone20 MG PO (19:54)
[2024-05-08] MEDS ORDERED: Ipratropium/Albuterol SulF 2.5-0.5MG/3 ML Amp INH ONE (19:55)
[2024-05-08] MEDS ORDERED: PredniSONE 20 MG Tab PO ONE (19:55)
[2024-05-08 20:30] VITALS: BP 120/73
== END 2024-05-08 20:37 | disposition home or self-care (01) ==
LOC: ER 18:36
PROVIDERS: Emergency Medicine
DX: J11.1 Influenza due to unidentified influenza virus with other respiratory manifestations (principal); J44.9 Chronic obstructive pulmonary disease, unspecified; E11.9 Type 2 diabetes mellitus without complications; I48.91 Unspecified atrial fibrillation; E78.5 Hyperlipidemia, unspecified; Z79.899 Other long term (current) drug therapy; Z79.890 Hormone replacement therapy; Z79.1 Long term (current) use of non-steroidal anti-inflammatories (NSAID)
CPT/HCPCS: 71046; 80053; 84484; 85025; 93005; 93010; 94640; 94664; 99284-25; J7512

== ENCOUNTER 2024-06-11 20:29 | Emergency (ER) | payer OTHER ==
[~2024-06-11] VITALS: Ht 177.8 cm; Wt 113.4 kg
[~2024-06-11 20:29] MED LIST changes: +Prednisone20 MG PO
[2024-06-11 21:29] LABS: BASOPHILS ABSOLUTE AUTO 0.05 K/mm3 (0.00-0.23); BASOPHILS PERCENT AUTO 1 % (0-2); EOSINOPHILS ABSOLUTE AUTO 0.03 K/mm3 (0.00-0.68); EOSINOPHILS PERCENT AUTO 0 % (0-6); Hemoglobin 12.1 g/dL (13.5-17.5); IMMATURE GRAN ABSOLUTE AUTO 0.05 K/mm3 (0.00-0.10); IMMATURE GRAN PERCENT AUTO 1 % (0-1); LYMPHOCYTES ABSOLUTE AUTO 0.87 K/mm3 (0.84-5.20); LYMPHOCYTES PERCENT AUTO 8 % (21-46); MONOCYTES PERCENT AUTO 7 % (4-13); Mean Corpuscular HGB 28.4 pg (26.0-34.0); Mean Corpuscular HGB Conc 32.7 g/dL (31.5-36.5); Mean Corpuscular Volume 87 fL (80-100); Mean Platelet Volume 10.9 fL (9.1-12.4); NEUTROPHILS ABSOLUTE AUTO 8.98 K/mm3 (1.96-9.15); NEUTROPHILS PERCENT AUTO 84 % (41-73); Platelet Count 170 K/mm3 (150-400); RDW Standard Deviation 44.3 fL (35.1-46.3); Red Blood Cell Count 4.26 M/mm3 (4.30-5.90); White Blood Cell Count 10.68 K/mm3 (4.00-11.30)
[2024-06-11 21:41] LABS: Albumin, Blood 3.2 g/dL (3.4-5.0); Albumin/Globulin Ratio 0.8 (0.8-1.8); Bilirubin, Total 0.6 mg/dL (0.1-1.0); Creatinine, Blood 0.57 mg/dL (0.60-1.20); Globulin, Blood 3.8 g/dL (2.2-4.0); Potassium, Blood 4.1 mmol/L (3.5-5.5)
[2024-06-11 23:23] LABS: Influenza A, PCR NEGATIVE (NEGATIVE); Influenza B, PCR NEGATIVE (NEGATIVE); Resp Syncytial Virus, PCR NEGATIVE (NEGATIVE); SARS-Cov-2 (COVID-19) PCR, MMC NEGATIVE (NEGATIVE)
[2024-06-12 00:24] LABS: Source, Urine Straight Cath
[2024-06-12 00:30] LABS: Bilirubin, Urine Neg (Neg); Blood, Urine 1+ (Neg); Glucose Qualitative, Urine 2+ (Neg); Ketones, Urine Neg (Neg); Leukocyte Esterase, Urine 2+ (Neg); Nitrite, Urine Neg (Neg); Protein, Urine 2+ (Neg); Urobilinogen, Urine NORM (Normal)
[2024-06-12 00:31] LABS: Appearance, Urine Hazy (Clear); Color, Urine Yellow (P-Yellow)
[2024-06-12 00:42] LABS: Amorphous Light (0-Heavy); Bacteria Mod /hpf; Red Blood Cells, Urine 0-2 /hpf (0-2); Squamous Epithelial Cells Rare /hpf (Few); White Blood Cells, Urine TNTC /hpf (0-5)
[2024-06-12] MEDS ORDERED: CefTRIAXone Sodium 1,000 MG in NS 50 ML IV ONE (00:50)
[2024-06-12] MEDS ORDERED: Metoprolol Tartrate 25 MG Tab PO ONE (00:55)
[2024-06-12] MEDS ORDERED: CEPH500 PO (00:57)
[2024-06-12 01:15] VITALS: BP 141/91
== END 2024-06-12 01:41 | disposition home or self-care (01) ==
LOC: ER 20:29
PROVIDERS: Emergency Medicine; Physician Assistant
DX: N39.0 Urinary tract infection, site not specified (principal); I48.91 Unspecified atrial fibrillation; Z11.52 Encounter for screening for COVID-19; Z79.52 Long term (current) use of systemic steroids; Z79.82 Long term (current) use of aspirin; Z79.899 Other long term (current) drug therapy
CPT/HCPCS: 0241U; 36415; 51701; 71045; 80053; 81001; 83605; 85025; 87040; 87077; 87086; 93005; 93010; 96365; 99284-25; A9270; J0696

== ENCOUNTER 2024-08-11 23:01 | Inpatient (IN) | payer OTHER ==
[~2024-08-11] VITALS: Ht 180.3 cm; Wt 104.3 kg
[~2024-08-11 23:01] MED LIST changes: +CEPH500 PO
[2024-08-11] MEDS ORDERED: Ipratropium/Albuterol SulF 2.5-0.5MG/3 ML Amp ONE (23:06)
[2024-08-11] MEDS ORDERED: Ipratropium/Albuterol SulF 2.5-0.5MG/3 ML Amp INH ONE (23:10)
[2024-08-11 23:32] LABS: BASOPHILS ABSOLUTE AUTO 0.05 K/mm3 (0.00-0.23); BASOPHILS PERCENT AUTO 1 % (0-2); EOSINOPHILS ABSOLUTE AUTO 0.16 K/mm3 (0.00-0.68); EOSINOPHILS PERCENT AUTO 3 % (0-6); Hematocrit 41.1 % (37.0-53.0); Hemoglobin 13.0 g/dL (13.5-17.5); IMMATURE GRAN ABSOLUTE AUTO 0.02 K/mm3 (0.00-0.10); IMMATURE GRAN PERCENT AUTO 0 % (0-1); LYMPHOCYTES ABSOLUTE AUTO 0.71 K/mm3 (0.84-5.20); LYMPHOCYTES PERCENT AUTO 12 % (21-46); MONOCYTES ABSOLUTE AUTO 0.39 K/mm3 (0.16-1.47); MONOCYTES PERCENT AUTO 6 % (4-13); Mean Corpuscular HGB Conc 31.6 g/dL (31.5-36.5); Mean Corpuscular Volume 90 fL (80-100); NEUTROPHILS ABSOLUTE AUTO 4.79 K/mm3 (1.96-9.15); NEUTROPHILS PERCENT AUTO 78 % (41-73); NRBC ABSOLUTE 0.00 K/mm3 (0.00-0.02); NRBC Auto 0.0 /100 WBC (0.0-0.2); Platelet Count 140 K/mm3 (150-400); RDW Coefficient Variation 15.0 % (11.7-14.2); RDW Standard Deviation 48.1 fL (35.1-46.3)
[2024-08-11] MEDS ORDERED: CefTRIAXone Sodium 2,000 MG in NS 100 ML IV ONE (23:45)
[2024-08-11 23:49] LABS: Alanine Aminotransfer (ALT/SGP 25.0 U/L (12-78); Albumin, Blood 3.6 g/dL (3.4-5.0); Albumin/Globulin Ratio 1.0 (0.8-1.8); Anion Gap 10.0 mmol/L (3-11); Aspartate Aminotrans (AST/SGOT 24.0 U/L (12-37); Bilirubin, Total 0.4 mg/dL (0.1-1.0); Blood Urea Nitrogen 18.0 mg/dL (8-24); CO2, Blood 27.0 mmol/L (21-32); Calcium, Blood 8.7 mg/dL (8.5-10.1); Chloride, Blood 106.0 mmol/L (98-108); Creatinine, Blood 0.8 mg/dL (0.60-1.20); Globulin, Blood 3.6 g/dL (2.2-4.0); Glucose, Blood 220.0 mg/dL (70-99); Magnesium, Blood 1.9 mg/dL (1.6-2.4); Potassium, Blood 4.5 mmol/L (3.5-5.5); Sodium, Blood 138.0 mmol/L (136-145); Total Protein, Blood 7.2 g/dL (6.4-8.2)
[2024-08-12] MEDS ORDERED: Ketorolac Tromethamine 15mg Vial IV ONE (01:00)
[2024-08-12] MEDS ORDERED: Ipratropium Bromide INH 0.02% 0.5 mg/2.5ML Vial INH SCH (02:40)
[2024-08-12] MEDS ORDERED: Albuterol 2.5 MG/3 ML VIAL INH PRN (02:40)
[2024-08-12] MEDS ORDERED: ELIQUIS5 M2 PO (02:48)
[2024-08-12 03:34] VITALS: BP 106/76
[2024-08-12 05:22] LABS: Hematocrit 37.1 % (37.0-53.0); Hemoglobin 12.3 g/dL (13.5-17.5); Mean Corpuscular HGB Conc 33.2 g/dL (31.5-36.5); Mean Corpuscular Volume 92 fL (80-100); NRBC ABSOLUTE 1.64 K/mm3 (0.00-0.02); NRBC Auto 36.9 /100 WBC (0.0-0.2); RDW Coefficient Variation 18.6 % (11.7-14.2); RDW Standard Deviation 59.7 fL (35.1-46.3)
[2024-08-12 05:44] LABS: BAND PERCENT MAN 4 % (0-8); BASOPHILS ABSOLUTE MAN 0.04 K/mm3 (0.00-0.23); BASOPHILS PERCENT MAN 1 % (0-2); EOSINOPHILS ABSOLUTE MAN 0.04 K/mm3 (0.00-0.68); EOSINOPHILS PERCENT MAN 1 % (0-6); LYMPHOCYTES ABSOLUTE MAN 0.75 K/mm3 (0.84-5.20); LYMPHOCYTES PERCENT MAN 17 % (21-46); MONOCYTES ABSOLUTE MAN 0.35 K/mm3 (0.16-1.47); MONOCYTES PERCENT MAN 8 % (4-13); NEUTROPHILS ABSOLUTE MAN 3.24 K/mm3 (1.96-9.15); SEG NEUTROPHILS PERCENT MAN 69 % (41-73)
[2024-08-12 05:48] LABS: Platelet Count 260 K/mm3 (150-400)
[2024-08-12 06:29] LABS: Alanine Aminotransfer (ALT/SGP 21.0 U/L (12-78); Albumin, Blood 3.3 g/dL (3.4-5.0); Albumin/Globulin Ratio 0.9 (0.8-1.8); Anion Gap 7.0 mmol/L (3-11); Aspartate Aminotrans (AST/SGOT 19.0 U/L (12-37); Bilirubin, Total 0.4 mg/dL (0.1-1.0); Blood Urea Nitrogen 15.0 mg/dL (8-24); CO2, Blood 27.0 mmol/L (21-32); Calcium, Blood 8.7 mg/dL (8.5-10.1); Chloride, Blood 108.0 mmol/L (98-108); Creatinine, Blood 0.83 mg/dL (0.60-1.20); Globulin, Blood 3.5 g/dL (2.2-4.0); Glucose, Blood 138.0 mg/dL (70-99); Potassium, Blood 4.1 mmol/L (3.5-5.5); Sodium, Blood 138.0 mmol/L (136-145); Total Protein, Blood 6.8 g/dL (6.4-8.2)
[2024-08-12 07:29] VITALS: BP 131/70
[2024-08-12] MEDS ORDERED: Insulin Human Lispro 100 Units/ML 3ML Syringe SC SCH ×2 (07:30)
[2024-08-12] MEDS ORDERED: Lactobacil 2-S.Thermo-Bifido 1 1 Cap PO SCH (09:00)
[2024-08-12 11:19] VITALS: BP 116/59
[2024-08-12] MEDS ORDERED: Tiotropium Bromide 2.5 MCG/ACT MIST INHAL (10 ACT/4 GM) INH SCH (11:35)
[2024-08-12 15:10] VITALS: BP 124/69
--- NOTE | 2024-08-12 18:12 | NUR ---
DAY SHIFT SUMMARY A&OX4, PLEASANT AND COOPERATIVE W/CARE, ABLE TO REMOVE 02 AT 0900, SATTING GREATER THAN 95% ON RA, DENIED PAIN THIS SHIFT, BEDRESTING AT THIS TIME, CALL LIGHT IN REACH, WILL CONT TO MONITOR UNTIL REPORT GIVEN TO ONCOMING NURSE
[2024-08-12 19:09] VITALS: BP 139/74
[2024-08-12] MEDS ORDERED: NS 250 ML IV PRN (20:35)
[2024-08-12] MEDS ORDERED: CefTRIAXone Sodium 1,000 MG in NS 100 ML IV SCH (21:00)
[2024-08-12 23:23] VITALS: BP 137/80
[2024-08-13 04:04] VITALS: BP 156/84
[2024-08-13 05:29] LABS: BASOPHILS ABSOLUTE AUTO 0.06 K/mm3 (0.00-0.23); BASOPHILS PERCENT AUTO 1 % (0-2); EOSINOPHILS ABSOLUTE AUTO 0.08 K/mm3 (0.00-0.68); EOSINOPHILS PERCENT AUTO 1 % (0-6); Hematocrit 40.0 % (37.0-53.0); Hemoglobin 12.8 g/dL (13.5-17.5); IMMATURE GRAN ABSOLUTE AUTO 0.01 K/mm3 (0.00-0.10); IMMATURE GRAN PERCENT AUTO 0 % (0-1); LYMPHOCYTES ABSOLUTE AUTO 1.27 K/mm3 (0.84-5.20); LYMPHOCYTES PERCENT AUTO 17 % (21-46); MONOCYTES ABSOLUTE AUTO 0.59 K/mm3 (0.16-1.47); MONOCYTES PERCENT AUTO 8 % (4-13); Mean Corpuscular HGB Conc 32.0 g/dL (31.5-36.5); Mean Corpuscular Volume 89 fL (80-100); NEUTROPHILS ABSOLUTE AUTO 5.41 K/mm3 (1.96-9.15); NEUTROPHILS PERCENT AUTO 73 % (41-73); NRBC ABSOLUTE 0.00 K/mm3 (0.00-0.02); NRBC Auto 0.0 /100 WBC (0.0-0.2); Platelet Count 131 K/mm3 (150-400); RDW Coefficient Variation 14.9 % (11.7-14.2); RDW Standard Deviation 48.5 fL (35.1-46.3)
[2024-08-13 07:34] VITALS: BP 137/91
[2024-08-13 09:44] LABS: Influenza A/2009-H1 Not Detected (NOT DETECT); SARS-Cov-2 (COVID-19), BioFire Not Detected (NOT DETECT)
[2024-08-13 11:10] VITALS: BP 114/65
[2024-08-13] MEDS ORDERED: Albuterol 2.5 MG/3 ML VIAL INH SCH (12:35)
[2024-08-13 15:18] VITALS: BP 120/80
--- NOTE | 2024-08-13 18:31 | NUR ---
DAY SUMMARY PT HAVING PRODUCTIVE COUGH TODAY, MAINTAINING O2 LEVELS GREATER THAN 90% ON RA, SHOWERED THIS SHIFT, DENIES PAIN, BEDRESTING AT THIS TIME, CALL LIGHT IN REACH, WILL CONT TO MONITOR UNTIL REPORT GIVENN TO ONCOMING NURSE.
[2024-08-13 20:02] VITALS: BP 123/58
[2024-08-14 03:16] VITALS: BP 149/94
--- NOTE | 2024-08-14 03:18 | NUR ---
SHIFT SUMMARY: AOX4. PT DENIED ANY SOB OR CP THIS SHIFT. PT ON RA WHILE AWAKE USED CPAP AT NIGHT. PT HAD NO COUGHING FITS THROUGHOUT THE NIGHT AND SLEPT COMFORTABLY. CALL LIGHT IS WITHIN REACH. BED IS LOW AND LOCKED.
[2024-08-14 07:38] VITALS: BP 138/82
[2024-08-14 07:56] LABS: BASOPHILS ABSOLUTE AUTO 0.05 K/mm3 (0.00-0.23); BASOPHILS PERCENT AUTO 1 % (0-2); EOSINOPHILS ABSOLUTE AUTO 0.06 K/mm3 (0.00-0.68); EOSINOPHILS PERCENT AUTO 1 % (0-6); Hematocrit 38.9 % (37.0-53.0); Hemoglobin 12.6 g/dL (13.5-17.5); IMMATURE GRAN ABSOLUTE AUTO 0.02 K/mm3 (0.00-0.10); IMMATURE GRAN PERCENT AUTO 0 % (0-1); LYMPHOCYTES ABSOLUTE AUTO 1.94 K/mm3 (0.84-5.20); LYMPHOCYTES PERCENT AUTO 24 % (21-46); MONOCYTES ABSOLUTE AUTO 0.48 K/mm3 (0.16-1.47); MONOCYTES PERCENT AUTO 6 % (4-13); Mean Corpuscular HGB Conc 32.4 g/dL (31.5-36.5); Mean Corpuscular Volume 89 fL (80-100); NEUTROPHILS ABSOLUTE AUTO 5.69 K/mm3 (1.96-9.15); NEUTROPHILS PERCENT AUTO 69 % (41-73); NRBC ABSOLUTE 0.00 K/mm3 (0.00-0.02); NRBC Auto 0.0 /100 WBC (0.0-0.2); Platelet Count 154 K/mm3 (150-400); RDW Coefficient Variation 15.1 % (11.7-14.2); RDW Standard Deviation 49.3 fL (35.1-46.3)
--- NOTE | 2024-08-14 10:16 | NUR ---
THIS NURSE WORKING ON PT'S DISCHARGE, THERE WERE MEDICATIONS NOT ON THE DISCHARGE MED REC. THIS NURSE CALLED DR BROWN WHO WENT OVER MEDICATIONS WITH THIS NURSE. SEE DISCHARGE MEDS FOR MOST COMPLETE LIST. DR STEWART STATED THAT THE HOME MED REC LOOKED INCOMPLETE FROM HIS END. THIS NURSE'S STATUS BOARD SAYS HOME MED REC COMPLETED.
[2024-08-14] MEDS ORDERED: AZIT250 PO (10:18)
[2024-08-14] MEDS ORDERED: BENZ100A PO (10:19)
[2024-08-14] MEDS ORDERED: CEFP200 PO (10:20)
[2024-08-14] MEDS ORDERED: METO50 PO (10:21)
[2024-08-14] MEDS ORDERED: Mucinex600 MG PO (10:21)
[2024-08-14] MEDS ORDERED: PRED20 PO (10:21)
[2024-08-14] MEDS ORDERED: SPIRIVA RESPIMAT4 G3 INH (10:23)
[2024-08-14] MEDS ORDERED: BUDESONIDE-FO10.2 G2 INH (10:24)
--- NOTE | 2024-08-14 12:58 | NUR ---
DISCHARGE REVIEWED DISCHAGE INSTRUCTIONS WITH PATIENT AND DAUGHTER WHO VERBALIZED UNDERSTANDING, [facility], [facility] RM[facility]ED, PT TRANSPORTED VIA WHEELCHAIR TO DISCHARGE IN PRIVATE VEHICLE WITH [employer] AT 1250, ALL BELONGINGS SENT W/PATIENT.
== END 2024-08-14 13:12 | disposition home or self-care (01) | DRG 191 ==
LOC: ER 23:01 → MEDS 08-12 02:24
PROVIDERS: Student in an Organized Health Care Education/Training Program; ADMIT Student in an Organized Health Care Education/Training Program
PROC: 5A09357 Assistance with Respiratory Ventilation, Less than 24 Consecutive Hours, Continuous Positive Airway Pressure (ICD-10-PCS; principal; 2024-08-12)
DX: J44.1 Chronic obstructive pulmonary disease with (acute) exacerbation (principal); I48.20 Chronic atrial fibrillation, unspecified; G47.33 Obstructive sleep apnea (adult) (pediatric); E11.9 Type 2 diabetes mellitus without complications; E66.9 Obesity, unspecified; I10 Essential (primary) hypertension; D64.9 Anemia, unspecified; B34.8 Other viral infections of unspecified site; Z66 Do not resuscitate; Z79.82 Long term (current) use of aspirin; Z79.84 Long term (current) use of oral hypoglycemic drugs; Z79.52 Long term (current) use of systemic steroids; Z85.51 Personal history of malignant neoplasm of bladder; Z87.891 Personal history of nicotine dependence; Z68.32 Body mass index [BMI] 32.0-32.9, adult; Z95.818 Presence of other cardiac implants and grafts
CPT/HCPCS: 0202U; 36415; 71045; 80053; 82947; 83735; 83880; 84145; 84484; 85025; 93005; 93010; 94640; 94664; 94760; 94762; 96365; 96375; 99285-25; A9270; J0696; J1885; J7512

== ENCOUNTER 2024-08-21 12:30 | Inpatient (IN) | payer OTHER ==
[~2024-08-21] VITALS: Ht 177.8 cm; Wt 111.0 kg
[~2024-08-21 12:30] MED LIST changes: +BENZ100A PO; +BUDESONIDE-FO10.2 G2 INH; +CEFP200 PO; +ELIQUIS5 M2 PO; +METO50 PO; +Mucinex600 MG PO; +SPIRIVA RESPIMAT4 G3 INH
[2024-08-21 13:00] LABS: BASOPHILS ABSOLUTE AUTO 0.05 K/mm3 (0.00-0.23); BASOPHILS PERCENT AUTO 0 % (0-2); EOSINOPHILS ABSOLUTE AUTO 0.00 K/mm3 (0.00-0.68); EOSINOPHILS PERCENT AUTO 0 % (0-6); Hematocrit 42.5 % (37.0-53.0); Hemoglobin 13.9 g/dL (13.5-17.5); IMMATURE GRAN ABSOLUTE AUTO 0.10 K/mm3 (0.00-0.10); IMMATURE GRAN PERCENT AUTO 0 % (0-1); LYMPHOCYTES ABSOLUTE AUTO 0.63 K/mm3 (0.84-5.20); LYMPHOCYTES PERCENT AUTO 3 % (21-46); MONOCYTES ABSOLUTE AUTO 1.85 K/mm3 (0.16-1.47); MONOCYTES PERCENT AUTO 8 % (4-13); Mean Corpuscular HGB Conc 32.7 g/dL (31.5-36.5); Mean Corpuscular Volume 88 fL (80-100); NEUTROPHILS ABSOLUTE AUTO 20.39 K/mm3 (1.96-9.15); NEUTROPHILS PERCENT AUTO 89 % (41-73); NRBC ABSOLUTE 0.00 K/mm3 (0.00-0.02); NRBC Auto 0.0 /100 WBC (0.0-0.2); Platelet Count 146 K/mm3 (150-400); RDW Coefficient Variation 15.1 % (11.7-14.2); RDW Standard Deviation 48.7 fL (35.1-46.3)
[2024-08-21 13:43] LABS: Alanine Aminotransfer (ALT/SGP 27.0 U/L (12-78); Albumin, Blood 3.5 g/dL (3.4-5.0); Albumin/Globulin Ratio 0.9 (0.8-1.8); Anion Gap 6.0 mmol/L (3-11); Aspartate Aminotrans (AST/SGOT 19.0 U/L (12-37); Bilirubin, Total 1.2 mg/dL (0.1-1.0); Blood Urea Nitrogen 18.0 mg/dL (8-24); CO2, Blood 28.0 mmol/L (21-32); Calcium, Blood 9.1 mg/dL (8.5-10.1); Chloride, Blood 106.0 mmol/L (98-108); Creatinine, Blood 0.75 mg/dL (0.60-1.20); Globulin, Blood 3.9 g/dL (2.2-4.0); Glucose, Blood 179.0 mg/dL (70-99); Potassium, Blood 4.0 mmol/L (3.5-5.5); Sodium, Blood 136.0 mmol/L (136-145); Total Protein, Blood 7.4 g/dL (6.4-8.2)
[2024-08-21] MEDS ORDERED: NS 1,000 ML IV SCH (16:20)
[2024-08-21 16:31] LABS: Influenza A, PCR NEGATIVE (NEGATIVE); Influenza B, PCR NEGATIVE (NEGATIVE); Resp Syncytial Virus, PCR NEGATIVE (NEGATIVE); SARS-Cov-2 (COVID-19) PCR, MMC NEGATIVE (NEGATIVE)
[2024-08-21] MEDS ORDERED: CefTRIAXone Sodium 1,000 MG in NS 100 ML IV ONE (17:05)
[2024-08-21 17:16] LABS: Source, Urine Clean Catch
[2024-08-21 17:49] LABS: Bilirubin, Urine Neg (Neg); Color, Urine Yellow (P-Yellow); Glucose Qualitative, Urine 4+ (Neg); Ketones, Urine 1+ (Neg); Leukocyte Esterase, Urine 1+ (Neg); Protein, Urine 2+ (Neg); Specific Gravity, Urine 1.010 (1.003-1.022); Urobilinogen, Urine NORM (Normal)
[2024-08-21 18:15] LABS: White Blood Cells, Urine 25-50 /hpf (0-5)
[2024-08-21 18:20] LABS: pH Blood Venous 7.43 (7.34-7.37)
[2024-08-21 18:45] VITALS: BP 103/53
[2024-08-21] MEDS ORDERED: Polyethylene Glycol 3350 17 gm PO PRN (19:55)
[2024-08-21] MEDS ORDERED: Tiotropium Bromide 2.5 MCG/ACT MIST INHAL (10 ACT/4 GM) INH SCH (20:00)
[2024-08-21] MEDS ORDERED: Albuterol HFA200 ACT/6.7 GM INH INH PRN (20:05)
[2024-08-21] MEDS ORDERED: Formoterol/Mometasone MDI 5/200 mcg 13 GM INH SCH (20:05)
[2024-08-21] MEDS ORDERED: Vancomycin (Pharmacy Consult) IV SCH (20:15)
--- NOTE | 2024-08-21 20:28 | NUR ---
call placed to patients daughter for medication rec. no answer. will relay to dayshift rn if no return call from patients daughter.
[2024-08-21] MEDS ORDERED: Ipratropium/Albuterol SulF 2.5-0.5MG/3 ML Amp ONE (20:52)
[2024-08-21] MEDS ORDERED: Ipratropium/Albuterol SulF 2.5-0.5MG/3 ML Amp INH SCH (20:55)
[2024-08-21] MEDS ORDERED: Lactobacil 2-S.Thermo-Bifido 1 1 Cap PO SCH (21:00)
[2024-08-21] MEDS ORDERED: Vancomycin HCL 2,500 MG in NS 500 ML IV ONE (21:05)
[2024-08-21] MEDS ORDERED: CefTRIAXone Sodium 1,000 MG in NS 100 ML IV SCH (21:15)
[2024-08-21] MEDS ORDERED: CYMBALTA30 M1 PO (22:18)
[2024-08-21 22:58] VITALS: BP 106/72
[2024-08-22] VITALS (7 sets, daily range): BP systolic 109–141; BP diastolic 58–82
[2024-08-22 03:20] LABS: BASOPHILS ABSOLUTE AUTO 0.06 K/mm3 (0.00-0.23); BASOPHILS PERCENT AUTO 0 % (0-2); EOSINOPHILS ABSOLUTE AUTO 0.00 K/mm3 (0.00-0.68); EOSINOPHILS PERCENT AUTO 0 % (0-6); Hematocrit 41.7 % (37.0-53.0); Hemoglobin 13.2 g/dL (13.5-17.5); IMMATURE GRAN ABSOLUTE AUTO 0.14 K/mm3 (0.00-0.10); IMMATURE GRAN PERCENT AUTO 1 % (0-1); LYMPHOCYTES ABSOLUTE AUTO 1.00 K/mm3 (0.84-5.20); LYMPHOCYTES PERCENT AUTO 4 % (21-46); MONOCYTES ABSOLUTE AUTO 1.52 K/mm3 (0.16-1.47); MONOCYTES PERCENT AUTO 7 % (4-13); Mean Corpuscular HGB Conc 31.7 g/dL (31.5-36.5); Mean Corpuscular Volume 89 fL (80-100); NEUTROPHILS ABSOLUTE AUTO 20.27 K/mm3 (1.96-9.15); NEUTROPHILS PERCENT AUTO 88 % (41-73); NRBC ABSOLUTE 0.00 K/mm3 (0.00-0.02); NRBC Auto 0.0 /100 WBC (0.0-0.2); Platelet Count 112 K/mm3 (150-400); RDW Coefficient Variation 15.6 % (11.7-14.2); RDW Standard Deviation 51.3 fL (35.1-46.3)
--- NOTE | 2024-08-22 04:50 | NUR ---
SHIFT SUMMARY. PATIENT IS ALERT AND ORIENTED, ABLE TO ANSWER ORIENTATION QUESTIONS APPROPRIATELY ALTHOUGH FORGETFUL AT TIMES AND A POOR HISTORIAN. PATIENT HAVING AN INCREASE WORK OF BREATHING AT THIS BEGINNING OF THE SHIFT-RT ORDERS IN, PATIENT RECEIVED BREATHING TREATMENT A CPAP PLACED WITH IMPROVEMENT TO BREATHING-PATIENT USES CPAP AT HOME AT NIGHT. PATIENT USES A WHEELCHAIR AT BASELINE WITH STAND PIVOT TRANSFERS-PER REPORT PATIENT WAS A HEAVY 2-3 PERSON ASSIST WITH TRANSFERS. PATIENT HAS POWER GLIDE TO [place] THAT IS PATENT AND DRAWS. PATIENT TAKES PILLS WHOLE WITH WATER W/O DIFFICULTY. PATIENT DENIES PAIN THIS SHIFT. NO CHEST PAIN/PRESSURE/TIGHTNESS/PALPATIONS THIS SHIFT. PATIENT IN WITH AFIB WITH RATE BETWEEN 70-130'S TOUCHING INTO THE 150'S WITH A QUICK DECREASE-METOPROLOL GIVEN WITH IMPROVEMENT TO HEART RATE. PATIENT HAS A PUREWICK IN PLACE. PATIENTS NEEDS ASSESSED-PATIENT DENIES NEEDS AT THIS TIME. BED IS LOCKED IN THE LOWEST POSITION WITH CALL LIGHT IN REACH. CARE IS ONGOING.
--- NOTE | 2024-08-22 06:40 | NUR ---
DAUGHTER JESUS NOTIFIED OF PATIENTS MOVE FROM [facility] TO [facility].
[2024-08-22] MEDS ORDERED: Cholecalciferol 1000 Unit Tablet (=25MCG) PO SCH (09:00)
[2024-08-22 11:30] LABS: Alanine Aminotransfer (ALT/SGP 31.0 U/L (12-78); Albumin, Blood 3.2 g/dL (3.4-5.0); Albumin/Globulin Ratio 0.8 (0.8-1.8); Anion Gap 14.0 mmol/L (3-11); Aspartate Aminotrans (AST/SGOT 29.0 U/L (12-37); Bilirubin, Total 1.0 mg/dL (0.1-1.0); Blood Urea Nitrogen 28.0 mg/dL (8-24); CO2, Blood 26.0 mmol/L (21-32); Calcium, Blood 8.6 mg/dL (8.5-10.1); Chloride, Blood 106.0 mmol/L (98-108); Creatinine, Blood 1.18 mg/dL (0.60-1.20); Globulin, Blood 3.8 g/dL (2.2-4.0); Glucose, Blood 183.0 mg/dL (70-99); Magnesium, Blood 1.9 mg/dL (1.6-2.4); Potassium, Blood 4.6 mmol/L (3.5-5.5); Sodium, Blood 141.0 mmol/L (136-145); Total Protein, Blood 7.0 g/dL (6.4-8.2)
--- NOTE | 2024-08-22 13:08 | NUR ---
PT IS A&Ox4 AND ABLE TO MAKE NEEDS KNOWN. THOUGH HE IS A BIT LETHARGIC TODAY. HE IS ON RA W/O2 SATS >90%. HE HAS BEEN x2 ASSIST W/TURNS IN BED. BLANKETS REMOVED AND ROOM TEMP DECREASED EARLIER D/T ELEVATED TEMP. NO NEEDS OR CONCERNS NOTED @ THIS TIME. BED IN LOW POSITION, CALL LIGHT AND PERSONNAL BELONGINGS IN REACH.
[2024-08-22] MEDS ORDERED: DULoxetine HCL 30 MG Cap DR PO SCH (21:00)
[2024-08-22 21:57] LABS: Vancomycin, Trough 12.8 ug/mL (5.0-10.0)
[2024-08-23 03:42] VITALS: BP 138/82
[2024-08-23 04:09] LABS: BASOPHILS ABSOLUTE AUTO 0.05 K/mm3 (0.00-0.23); BASOPHILS PERCENT AUTO 0 % (0-2); EOSINOPHILS ABSOLUTE AUTO 0.00 K/mm3 (0.00-0.68); EOSINOPHILS PERCENT AUTO 0 % (0-6); Hematocrit 36.4 % (37.0-53.0); Hemoglobin 11.9 g/dL (13.5-17.5); IMMATURE GRAN ABSOLUTE AUTO 0.06 K/mm3 (0.00-0.10); IMMATURE GRAN PERCENT AUTO 0 % (0-1); LYMPHOCYTES ABSOLUTE AUTO 0.81 K/mm3 (0.84-5.20); LYMPHOCYTES PERCENT AUTO 6 % (21-46); MONOCYTES ABSOLUTE AUTO 1.01 K/mm3 (0.16-1.47); MONOCYTES PERCENT AUTO 7 % (4-13); Mean Corpuscular HGB Conc 32.7 g/dL (31.5-36.5); Mean Corpuscular Volume 87 fL (80-100); NEUTROPHILS ABSOLUTE AUTO 12.41 K/mm3 (1.96-9.15); NEUTROPHILS PERCENT AUTO 87 % (41-73); NRBC ABSOLUTE 0.00 K/mm3 (0.00-0.02); NRBC Auto 0.0 /100 WBC (0.0-0.2); Platelet Count 84 K/mm3 (150-400); RDW Coefficient Variation 15.5 % (11.7-14.2); RDW Standard Deviation 50.0 fL (35.1-46.3)
[2024-08-23 04:43] LABS: Alanine Aminotransfer (ALT/SGP 25.0 U/L (12-78); Albumin, Blood 2.6 g/dL (3.4-5.0); Albumin/Globulin Ratio 0.6 (0.8-1.8); Anion Gap 9.0 mmol/L (3-11); Aspartate Aminotrans (AST/SGOT 22.0 U/L (12-37); Bilirubin, Total 0.7 mg/dL (0.1-1.0); Blood Urea Nitrogen 27.0 mg/dL (8-24); CO2, Blood 23.0 mmol/L (21-32); Calcium, Blood 8.4 mg/dL (8.5-10.1); Chloride, Blood 108.0 mmol/L (98-108); Creatinine, Blood 0.96 mg/dL (0.60-1.20); Globulin, Blood 4.0 g/dL (2.2-4.0); Glucose, Blood 222.0 mg/dL (70-99); Potassium, Blood 3.9 mmol/L (3.5-5.5); Sodium, Blood 136.0 mmol/L (136-145); Total Protein, Blood 6.6 g/dL (6.4-8.2)
--- NOTE | 2024-08-23 05:36 | NUR ---
SHIFT SUMMARY PT IS A&O X2-3, ABLE TO STATE HIS NAME, MONTH AND DAY OF BIRTHDAY BUT DOES NOT ANSWER WHAT YEAR, PT DID NOT RESPOND TO TODAYS DATE, PT ABLE TO STATE HE IS IN [place] AND IN [place], TO ABLE TO MAKE NEEDS KNOWN, MOVING ALL EXTREMITIES WITH PURPOSE, Q2 REPOSITIONING BY STAFF, BASELINE PT USES WHEELCHAIR STAND PIVOT. CONTINUOUS SPO2, SPO2 GREATER 90% ON RA WHILE AWAKE AND CPAP WHILE SLEEPING, LUNGS SOUND CLEAR T/O WITH DIMMINISHED BASES, NO SIGNS OF RESPIRATORY DISTRESS. CONTINUOUS TELE MONITORING, AFIB RHYTHM 80-90 S, PULSES PRESENT T/O, PT DENEIS CHEST P/P T/O THIS SHIFT, BP STABLE WITH MAP GREATER THAN 65. BOWEL TONES PRESENT IN ALL 4Q, PT DENIES FEELINGS OF NAUSEA, OR CONSTIPATION. PUREWICK IN PLACE CONNECTED TO LOW CONTINUOUS SUCTION. FAMILY AT BEDSIDE AT THE START OF THIS SHIFT. BED LOWEST POSITION, CALL LIGHT IN REACH, AWAITING TO GIVE REPORT TO ONCOMING RN.
--- NOTE | 2024-08-23 07:46 | NUR ---
ASSUMPTION NOTE THIS RN TO ASSUME CARE OF PT. PATIENT IS SITTING UP IN BED WATCHING TV. PT VITAL SIGNS STABLE. PATIENT DENIED ANY CHEST PAIN/PRESSURE. CBG ELEVATED AT 190 THIS MORNING, TO BE GIVEN INSULIN PER EMAR. PATIENT HAS CALL LIGHT WITHIN REACH, BED IN LOWEST POSITION & STATING NOTHING ELSE IS NEEDED AT THIS TIME.
[2024-08-23 07:47] VITALS: BP 156/70
--- NOTE | 2024-08-23 08:12 | NUR ---
MD ROUNDED: MD ROUNDED AND SPOKE WITH PATIENT. PATIENT IS AWAKE AND TALKING WITH MD. THIS RN NOTIFIED HIM OF HEART RATE TACHY OCCASINALLY TOUCHING 140, METOPROLOL WAS JUST GIVEN AND PT FINISHED BREAHTING TREATMENT. THIS RN ASKED MD REGARIG INSULIN HE HAS NO ORDERS ON EMAR. MD STATED NOT TO WORRY IF IT GETS HIGHER WE CAN CHANGE BUT TO CONTINUE TO MONITOR.
[2024-08-23] MEDS ORDERED: CefTRIAXone Sodium 2,000 MG in NS 100 ML IV SCH (09:00)
[2024-08-23 11:11] VITALS: BP 135/78
[2024-08-23] MEDS ORDERED: Cefepime HCl 2,000 MG in NS 100 ML IV SCH (15:00)
[2024-08-23 15:20] VITALS: BP 135/77
--- NOTE | 2024-08-23 17:10 | NUR ---
SHIFT SUMMARY: PATIENT IS ALERT AND ORIENTED X4 & COOPERATIVE WITH HIS CARE, ABLE TO MAKE NEEDS KNOWN & SUES CALL LIGHT APPROIRATELY. PATIENT IS ON TELE SHOWING AFIB WITH RATE BETWEEN 80-140 THIS MORNING PRIOR TO GETTING MORNING MEDICATION. SATTING >92% ON ROOM AIR GETTING BREATHING TREATMENTS FROM RT,PT WEARS CPAP AT NIGHT. PATIENT FAMILY CAME TO BEDIDE THORUGHOUT THE SHIFT. PATIENT WORKED WITH PHYSICAL THERAPY AND OCCUPATIONAL THERAPY TODAY AND THEY ARE RECCOMENDING HOME, OFFICE AGENT OFFERED HOME HEALTH,SEE NOTES FOR MORE INFORMATION. PATIENT WAS UP FOR MEALS,GETTING IV ANTIBIOTICS AND IS A 1 PERSON ASSIST WITH FRONT WHEELED WALKER. IS ACHS BLOOD SUGAR CHECKS BUT NOT GETTING ANY INSULIN, PER VERBAL ORDER FROM MD,SEE NOTES FOR MORE INFORMATION. PATIENT IS SITTING IN CHAIR,CALL LIGHT WITHIN REACH & STATING NOTHING ELSE IS NEEDED AT THIS TIME.
[2024-08-23 19:15] VITALS: BP 111/71
[2024-08-23 23:20] VITALS: BP 136/96
[2024-08-24 03:11] VITALS: BP 136/83
[2024-08-24 03:31] LABS: BASOPHILS ABSOLUTE AUTO 0.02 K/mm3 (0.00-0.23); BASOPHILS PERCENT AUTO 0 % (0-2); EOSINOPHILS ABSOLUTE AUTO 0.12 K/mm3 (0.00-0.68); EOSINOPHILS PERCENT AUTO 1 % (0-6); Hematocrit 34.3 % (37.0-53.0); Hemoglobin 11.2 g/dL (13.5-17.5); IMMATURE GRAN ABSOLUTE AUTO 0.02 K/mm3 (0.00-0.10); IMMATURE GRAN PERCENT AUTO 0 % (0-1); LYMPHOCYTES ABSOLUTE AUTO 0.76 K/mm3 (0.84-5.20); LYMPHOCYTES PERCENT AUTO 9 % (21-46); MONOCYTES ABSOLUTE AUTO 0.47 K/mm3 (0.16-1.47); MONOCYTES PERCENT AUTO 5 % (4-13); Mean Corpuscular HGB Conc 32.7 g/dL (31.5-36.5); Mean Corpuscular Volume 87 fL (80-100); NEUTROPHILS ABSOLUTE AUTO 7.60 K/mm3 (1.96-9.15); NEUTROPHILS PERCENT AUTO 85 % (41-73); NRBC ABSOLUTE 0.00 K/mm3 (0.00-0.02); NRBC Auto 0.0 /100 WBC (0.0-0.2); Platelet Count 85 K/mm3 (150-400); RDW Coefficient Variation 14.9 % (11.7-14.2); RDW Standard Deviation 48.3 fL (35.1-46.3)
[2024-08-24 03:45] LABS: Anion Gap 7.0 mmol/L (3-11); Blood Urea Nitrogen 22.0 mg/dL (8-24); CO2, Blood 26.0 mmol/L (21-32); Calcium, Blood 8.0 mg/dL (8.5-10.1); Chloride, Blood 107.0 mmol/L (98-108); Creatinine, Blood 0.79 mg/dL (0.60-1.20); Glucose, Blood 192.0 mg/dL (70-99); Potassium, Blood 4.1 mmol/L (3.5-5.5); Sodium, Blood 136.0 mmol/L (136-145)
--- NOTE | 2024-08-24 06:03 | NUR ---
SHIFT SUMMARY PT IS A&O X4, TO ABLE TO MAKE NEEDS KNOWN, MOVING ALL EXTREMITIES WITH PURPOSE, ASSITING PT WITH REPOSITIONING/ PT DECLINED AT TIMES, BASELINE PT USES WHEELCHAIR STAND PIVOT, PT A 1 PERSON ASSIT WITH FWW. CONTINUOUS SPO2, SPO2 GREATER 90% ON RA WHILE AWAKE AND CPAP WHILE SLEEPING, LUNGS SOUND CLEAR T/O WITH DIMMINISHED BASES, NO SIGNS OF RESPIRATORY DISTRESS. CONTINUOUS TELE MONITORING, AFIB RHYTHM 90-100S/ 120-140 S WITH ACTIVITY, PULSES PRESENT T/O, PT DENEIS CHEST P/P T/O THIS SHIFT, BP STABLE WITH MAP GREATER THAN 65. BOWEL TONES PRESENT IN ALL 4Q, PT DENIES FEELINGS OF NAUSEA, OR CONSTIPATION. PUREWICK IN PLACE CONNECTED TO LOW CONTINUOUS SUCTION, URINE BARRY IN COLOR. BED LOWEST POSITION, CALL LIGHT IN REACH, AWAITING TO GIVE REPORT TO ONCOMING RN.
[2024-08-24 07:18] VITALS: BP 154/96
--- NOTE | 2024-08-24 07:18 | NUR ---
ASSUMPITION NOTE: THIS RN TO ASSME CARE OF PATIENT. PATIENT IS AWAKE IN BED AND WILL BE GETTING INTO THE CHAIR FOR BREAKFAST. PATIENT DENIED ANY CHEST PAIN/PRESSURE OR FEELING SHORT OF BREATH. HAS CALL LIGHT WITHIN REACH.
[2024-08-24 11:03] VITALS: BP 120/90
[2024-08-24 15:38] VITALS: BP 150/91
--- NOTE | 2024-08-24 17:51 | NUR ---
SHIFT SUMMARY: PATIENT IS ALERT AND ORIENTED X4 & COOPERATIVE WITH HIS CARE, IS ABLE TO MAKE NEEDS KNOWN & USES CALL LIGHT APPROPRIATELY. PATIENT SATTING >92% ON ROOM AIR. ON TELE SHOWING AFIB WITH RATE IN 90'S THI SMORNING WAS 120 BUT WAS GIVEN SCHEDULED METOPROLOL. PATEINT FAMILY AT BEDSIDE THROUGHOUT SHIFT. WORKED WITH PHYSICAL AND OCCUPATIONAL THERAPY TODAY AND DID WELL. SAT IN THE CHAIR FOR MEALS TODAY. PATIENT CURRENTLY EATING DINNER IN CHAIR, CALL LIGHT WITHIN REACH & STATING NOTHING ELSE IS NEEDED AT THIS TIME.
[2024-08-24 20:22] VITALS: BP 151/76
[2024-08-24 23:34] VITALS: BP 121/82
[2024-08-25 04:11] VITALS: BP 148/77
--- NOTE | 2024-08-25 05:42 | NUR ---
SHIFT SUMMARY PT IS A&O X4, TO ABLE TO MAKE NEEDS KNOWN, MOVING ALL EXTREMITIES WITH PURPOSE, ASSITING PT WITH REPOSITIONING/ PT DECLINED AT TIMES, BASELINE PT USES WHEELCHAIR STAND PIVOT, PT A 1 PERSON ASSIT WITH FWW. CONTINUOUS SPO2, SPO2 GREATER 90% ON RA WHILE AWAKE AND CPAP WHILE SLEEPING, LUNGS SOUND CLEAR T/O WITH DIMMINISHED BASES, NO SIGNS OF RESPIRATORY DISTRESS. CONTINUOUS TELE MONITORING, AFIB RHYTHM 70-90 S/ 120-160 S WITH ACTIVITY, PULSES PRESENT T/O, PT DENEIS CHEST P/P T/O THIS SHIFT, BP STABLE WITH MAP GREATER THAN 65. BOWEL TONES PRESENT IN ALL 4Q, PT DENIES FEELINGS OF NAUSEA, OR CONSTIPATION. USING URINAL IND, URINE YELLOW IN COLOR. PT DAUGHTER JESUS CALLED AND WAS UPDATED BY THIS RN BED LOWEST POSITION, CALL LIGHT IN REACH, AWAITING TO GIVE REPORT TO ONCOMING RN.
[2024-08-25 07:19] VITALS: BP 143/100
--- NOTE | 2024-08-25 10:06 | NUR ---
am note this rn assumed care at 0700. vital signs stable. tele afib 110s, but heart rate increased to 180 when walking to the bathroom. once patient sat back in chair heart rate stayed in 120s and then eventually went back into 110s. md daugherty is aware of this and that heart rate increases with any activity. patient becomes short of breath with increase heart rate otherwise no symtpoms. patient is alert and oriented x3. perrla. patient has intermittent confusion. patient already stated it was morning and then when this rn went back into the room to give morning meds and stated going over morning medications patient stated "morning, i thought it was evening". this rn oriented patient back to correct time of day and had the patient look out the window to see that it was light out. patient denies pain, chest pain/pressure or shortness of breath. patient is continent of bowel and bladder. patient has scattered bruising throughout. see shift assessment for further detials. md daugherty in to see patient this morning
[2024-08-25 12:11] VITALS: BP 106/68
--- NOTE | 2024-08-25 13:01 | NUR ---
update this rn called md daugherty to notify of a two second pause
[2024-08-25 15:45] VITALS: BP 139/82
[2024-08-25 16:27] LABS: Source, Urine Clean Catch
[2024-08-25 16:30] LABS: Bilirubin, Urine Neg (Neg); Glucose Qualitative, Urine 1+ (Neg); Ketones, Urine Neg (Neg); Leukocyte Esterase, Urine 3+ (Neg); Protein, Urine 2+ (Neg); Specific Gravity, Urine 1.015 (1.003-1.022); Urobilinogen, Urine NORM (Normal)
[2024-08-25 16:46] LABS: Color, Urine Pale Yellow (P-Yellow)
[2024-08-25 16:47] LABS: White Blood Cells, Urine 50-100 /hpf (0-5); Yeast/Fungi Urine Many /hpf
--- NOTE | 2024-08-25 17:03 | NUR ---
shift summary patient vital signs remain stable. patient up to the bathroom multiple times today with a one person assist and front wheel walker. patient doesn't always use the call light and will set off the bed alarm at times. no acute changes this shift. bed bath done and linen change.
[2024-08-25 20:13] VITALS: BP 149/69
[2024-08-25 23:11] VITALS: BP 120/76
[2024-08-26 04:42] VITALS: BP 134/65
[2024-08-26 04:49] LABS: BASOPHILS ABSOLUTE AUTO 0.04 K/mm3 (0.00-0.23); BASOPHILS PERCENT AUTO 1 % (0-2); EOSINOPHILS ABSOLUTE AUTO 0.10 K/mm3 (0.00-0.68); EOSINOPHILS PERCENT AUTO 1 % (0-6); Hematocrit 33.7 % (37.0-53.0); Hemoglobin 11.1 g/dL (13.5-17.5); IMMATURE GRAN ABSOLUTE AUTO 0.15 K/mm3 (0.00-0.10); IMMATURE GRAN PERCENT AUTO 2 % (0-1); LYMPHOCYTES ABSOLUTE AUTO 0.96 K/mm3 (0.84-5.20); LYMPHOCYTES PERCENT AUTO 12 % (21-46); MONOCYTES ABSOLUTE AUTO 0.51 K/mm3 (0.16-1.47); MONOCYTES PERCENT AUTO 6 % (4-13); Mean Corpuscular HGB Conc 32.9 g/dL (31.5-36.5); Mean Corpuscular Volume 87 fL (80-100); NEUTROPHILS ABSOLUTE AUTO 6.39 K/mm3 (1.96-9.15); NEUTROPHILS PERCENT AUTO 78 % (41-73); NRBC ABSOLUTE 0.00 K/mm3 (0.00-0.02); NRBC Auto 0.0 /100 WBC (0.0-0.2); Platelet Count 125 K/mm3 (150-400); RDW Coefficient Variation 14.6 % (11.7-14.2); RDW Standard Deviation 46.5 fL (35.1-46.3)
[2024-08-26 05:05] LABS: Anion Gap 7.0 mmol/L (3-11); Blood Urea Nitrogen 13.0 mg/dL (8-24); CO2, Blood 30.0 mmol/L (21-32); Calcium, Blood 8.5 mg/dL (8.5-10.1); Chloride, Blood 104.0 mmol/L (98-108); Creatinine, Blood 0.78 mg/dL (0.60-1.20); Glucose, Blood 165.0 mg/dL (70-99); Magnesium, Blood 2.0 mg/dL (1.6-2.4); Potassium, Blood 3.8 mmol/L (3.5-5.5); Sodium, Blood 137.0 mmol/L (136-145)
--- NOTE | 2024-08-26 05:21 | NUR ---
SHIFT SUMMARY PATIENT ALERT, ORIENTED x4. ABLE TO MAKE NEEDS KNOWN. BP STABLE. PATIENT ON RA WHILE AWAKE, USES CPAP WHILE SLEEPING, SPO2 >90%. PATIENT AFIB ON MONITOR, NOTED OCCASIONAL INCREASED HR WITH EXERTION. PATIENT AMBULATING TO BATHROOM, SBA USING FWW. NO REPORTS OF PAIN DURING URINATION, ATTENDS IN PLACE. NO OTHER SIGNFICANT CHANGES DURING THE NIGHT, WILL REPORT TO DAY SHIFT RN.
[2024-08-26 08:03] VITALS: BP 148/74
[2024-08-26] MEDS ORDERED: Insulin Human Lispro 100 Units/ML 3ML Syringe SC SCH (11:30)
[2024-08-26 11:54] VITALS: BP 129/77
[2024-08-26 15:44] VITALS: BP 113/77
--- NOTE | 2024-08-26 16:55 | NUR ---
Medical Status / End of Shift Pt made medical w/ telemetry status this shift. Pt A&O x4. VSS. Spo2 > 92% on RA. Home CPAP at bedside for use while sleeping. Monitor showing afib, HR 70s-90s w/ increase to 120s-140s w/ ambulation. Pt reporting burning w/ urination still present. MD aware. MD w/ order for repeat blood cx's. Blood cx's drawn.
--- NOTE | 2024-08-26 18:14 | NUR ---
Transfer to Medical Report given to accepting medical floor RN assuming care of pt. Pt to be taken to rm 337 by wheelchair w/ belongings.
--- NOTE | 2024-08-26 18:39 | NUR ---
ASSUMPTION OF CARE NOTE: PATIENT ARRIVES TO ROOM AT 1822 VIA WC FROM PCU RM 20. ASSUME CARE OF PATIENT. PATIENT TRANSFERRED TO BED c 1 ASSIST. PATIENT ORIENTATED TO ROOM AND CALL SYSTEM. SKIN ASSESSMENT c 2 RN'S VERIFIED COMPLETED. PATIENT DENIES CP/PRESSURE, SOB, N/V AND DIZZINESS. PATIENT ON TELE, NO EVENTS SINCE TRANSFERRED TO ROOM. BED IN LOWEST POSITION. CALL LIGHT IN REACH.
[2024-08-26 19:12] VITALS: BP 118/70
[2024-08-27 00:02] VITALS: BP 119/79
--- NOTE | 2024-08-27 03:43 | NUR ---
SHIFT SUMMARY: AOX4. VSS. PT USED CPAP WHILE ASLEEP. PT IS STILL COMPLAINING OF BURNING WITH URINATION AND THAT HE IS HAVING FREQUENT, SMALL URINE OUTPUTS. TELEMETRY MONITORING IN PLACE, AFIB 90s. CALL LIGHT IS WITHIN REACH. BED IS LOW AND LOCKED.
[2024-08-27 05:37] LABS: Hematocrit 34.5 % (37.0-53.0); Hemoglobin 11.4 g/dL (13.5-17.5); Mean Corpuscular HGB Conc 33.0 g/dL (31.5-36.5); Mean Corpuscular Volume 86 fL (80-100); NRBC ABSOLUTE 0.00 K/mm3 (0.00-0.02); NRBC Auto 0.0 /100 WBC (0.0-0.2); Platelet Count 179 K/mm3 (150-400); RDW Coefficient Variation 14.6 % (11.7-14.2); RDW Standard Deviation 46.1 fL (35.1-46.3)
[2024-08-27 05:42] VITALS: BP 119/83
[2024-08-27 06:07] LABS: Anion Gap 6.0 mmol/L (3-11); Blood Urea Nitrogen 14.0 mg/dL (8-24); CO2, Blood 30.0 mmol/L (21-32); Calcium, Blood 8.5 mg/dL (8.5-10.1); Chloride, Blood 105.0 mmol/L (98-108); Creatinine, Blood 0.81 mg/dL (0.60-1.20); Glucose, Blood 165.0 mg/dL (70-99); Potassium, Blood 3.9 mmol/L (3.5-5.5); Sodium, Blood 137.0 mmol/L (136-145)
[2024-08-27 07:20] VITALS: BP 130/77
[2024-08-27] MEDS ORDERED: Ipratropium/Albuterol SulF 2.5-0.5MG/3 ML Amp INH PRN (11:40)
--- NOTE | 2024-08-27 16:43 | NUR ---
SHIFT SUMMARY PT AOX4, COOPERATIVE, ABLE TO MAKE NEEDS KNOWN. PT IS 1 PERSON ASSIST USING WALKER TO RECLINER/CHAIR. TOLERATING MEDICAITONS. CONT, USES URINAL. BED IN LOWEST POSITION, CALL LIGHT WITHIN REACH.
[2024-08-27 19:19] VITALS: BP 134/76
[2024-08-28 00:14] VITALS: BP 121/78
--- NOTE | 2024-08-28 03:53 | NUR ---
SHIFT SUMMARY: AOX4. VSS. PT USED CPAP WHILE ASLEEP. TELEMETRY MONITORING, AFIB 80s. PT DENIES PAIN, BURNING WHILE URINATING. CALL LIGHT IS WITHIN REACH. BED IS LOW AND LOCKED.
[2024-08-28 05:09] VITALS: BP 133/77
[2024-08-28 07:32] VITALS: BP 126/76
[2024-08-28 10:30] VITALS: BP 130/77
--- NOTE | 2024-08-28 10:32 | NUR ---
1025 NOTIFIED BY [facility] THAT PATIENT HR AFIB 120-170'S. CHECKED PT WHO REPORTS HE IS HAVING NO CHANGE IN HOW HE FEELS. VITAL SIGNS CHECKED. PHONE CALL MADE TO MARIANELA OZUNA AT THIS TIME. WILL RE ATTEMPT TO NOTIFY PHYSICIAN
[2024-08-28] MEDS ORDERED: DULERA 100 MCG/13 GM INH (13:43)
[2024-08-28] MEDS ORDERED: GUAI600T33 PO (13:43)
[2024-08-28] MEDS ORDERED: CIPR750 PO (13:43)
[2024-08-28] MEDS ORDERED: Vitamin D1000 UNI1 PO (13:44)
[2024-08-28] MEDS ORDERED: MIRALAX17 GM PO (13:44)
[2024-08-28] MEDS ORDERED: VISBIOME 112.51 EACH PO (13:44)
--- NOTE | 2024-08-28 14:49 | NUR ---
PT DISCHARGED TO HOME WITH FAMILY. ALL VALUABLES RETURNED AND SENT HOME WITH THE PT. DISCHARGE INSTRUCTIONS PROVIDED AND EDUCATED ON AT TIME OF DISCHARGE. NEW MEDICATIONS FAXED TO [facility].
[2024-08-29] MEDS ORDERED: ADVAIR INH (08:21)
--- NOTE | 2024-08-29 08:22 | NUR ---
LATE ENTRY 08/28/24 DISCHARGE MEDICATION PER PHARMACIST AT [facility], THEY CAN NOT FILL THE DULERA PRESCRIPTION THAT WAS WRITTEN AT DISCHARGE. PHARMACIST DID REPORT THEY COULD DO ADVAIR INSTEAD. THIS RN TALKED WITH DR. PINTO ABOUT THIS AND DR. PINTO GAVE A VERABL ORDER FOR ADVAIR 115MCG/21MCG, 1 PUFF TWICE DAILY. THIS RN CALLED ORDER INTO [facility] AND TALKED WITH AGUSTIN JACOBO.
== END 2024-08-28 14:10 | disposition home health service (06) | DRG 871 ==
LOC: ER 12:30 → PCU 12:31 → ERHOLD 12:31 → PCU 17:57 → MEDS 08-26 18:22
PROVIDERS: Internal Medicine; Physician Assistant; Student in an Organized Health Care Education/Training Program; ADMIT Student in an Organized Health Care Education/Training Program
PROC: 5A09357 Assistance with Respiratory Ventilation, Less than 24 Consecutive Hours, Continuous Positive Airway Pressure (ICD-10-PCS; principal; 2024-08-21)
PROC: 3E03329 Introduction of Other Anti-infective into Peripheral Vein, Percutaneous Approach (ICD-10-PCS; 2024-08-21)
DX: A41.52 Sepsis due to Pseudomonas (principal); G93.41 Metabolic encephalopathy; N39.0 Urinary tract infection, site not specified; J44.1 Chronic obstructive pulmonary disease with (acute) exacerbation; I48.20 Chronic atrial fibrillation, unspecified; I45.10 Unspecified right bundle-branch block; Z66 Do not resuscitate; G47.33 Obstructive sleep apnea (adult) (pediatric); E78.5 Hyperlipidemia, unspecified; R65.20 Severe sepsis without septic shock; D69.6 Thrombocytopenia, unspecified; N40.0 Benign prostatic hyperplasia without lower urinary tract symptoms; F32.A Depression, unspecified; E11.42 Type 2 diabetes mellitus with diabetic polyneuropathy; Z85.51 Personal history of malignant neoplasm of bladder; Z87.01 Personal history of pneumonia (recurrent); Z87.891 Personal history of nicotine dependence; Z79.01 Long term (current) use of anticoagulants; Z79.82 Long term (current) use of aspirin; Z79.52 Long term (current) use of systemic steroids; Z79.84 Long term (current) use of oral hypoglycemic drugs; Z79.891 Long term (current) use of opiate analgesic; Z79.899 Other long term (current) drug therapy
CPT/HCPCS: 36415; 51701; 71046; 80048; 80053; 80202; 81001; 82803; 82947; 83605; 83735; 84145; 84484; 85025; 85027; 85379; 87040; 87077; 87086; 87186; 87637; 93005; 93010; 94640; 94664; 94760; 94762; 96365; 96368; 96375; 96376; 97110; 97112; 97161; 97165; 97530; 97535; 99285-25; A9270; C1751; G0378; J0456; J0692; J0696; J3373; J7030; J7040; J7050

== ENCOUNTER 2024-09-02 03:36 | Inpatient (IN) | payer OTHER ==
[~2024-09-02] VITALS: Ht 177.8 cm; Wt 109.0 kg
[~2024-09-02 03:36] MED LIST changes: +ADVAIR INH; +CIPR750 PO; +CYMBALTA30 M1 PO; +DULERA 100 MCG/13 GM INH; +GUAI600T33 PO
[2024-09-02] MEDS ORDERED: FentaNYL Citrate 50 MCG/ML 2 ML Injection IV PRN (03:45)
[2024-09-02 04:01] LABS: BASOPHILS ABSOLUTE AUTO 0.05 K/mm3 (0.00-0.23); BASOPHILS PERCENT AUTO 1 % (0-2); EOSINOPHILS ABSOLUTE AUTO 0.10 K/mm3 (0.00-0.68); EOSINOPHILS PERCENT AUTO 1 % (0-6); Hematocrit 38.7 % (37.0-53.0); Hemoglobin 12.2 g/dL (13.5-17.5); IMMATURE GRAN ABSOLUTE AUTO 0.06 K/mm3 (0.00-0.10); IMMATURE GRAN PERCENT AUTO 1 % (0-1); LYMPHOCYTES ABSOLUTE AUTO 1.22 K/mm3 (0.84-5.20); LYMPHOCYTES PERCENT AUTO 15 % (21-46); MONOCYTES ABSOLUTE AUTO 0.41 K/mm3 (0.16-1.47); MONOCYTES PERCENT AUTO 5 % (4-13); Mean Corpuscular HGB Conc 31.5 g/dL (31.5-36.5); Mean Corpuscular Volume 89 fL (80-100); NEUTROPHILS ABSOLUTE AUTO 6.13 K/mm3 (1.96-9.15); NEUTROPHILS PERCENT AUTO 77 % (41-73); NRBC ABSOLUTE 0.00 K/mm3 (0.00-0.02); NRBC Auto 0.0 /100 WBC (0.0-0.2); Platelet Count 255 K/mm3 (150-400); RDW Coefficient Variation 14.5 % (11.7-14.2); RDW Standard Deviation 47.6 fL (35.1-46.3)
[2024-09-02 04:18] LABS: Prothrombin Time Results 13.1 Sec (9.7-11.5)
[2024-09-02 04:24] LABS: Alanine Aminotransfer (ALT/SGP 37.0 U/L (12-78); Albumin, Blood 2.8 g/dL (3.4-5.0); Albumin/Globulin Ratio 0.7 (0.8-1.8); Anion Gap 6.0 mmol/L (3-11); Aspartate Aminotrans (AST/SGOT 25.0 U/L (12-37); Bilirubin, Total 0.2 mg/dL (0.1-1.0); Blood Urea Nitrogen 15.0 mg/dL (8-24); CO2, Blood 27.0 mmol/L (21-32); Calcium, Blood 8.4 mg/dL (8.5-10.1); Chloride, Blood 107.0 mmol/L (98-108); Creatinine, Blood 0.74 mg/dL (0.60-1.20); Globulin, Blood 4.0 g/dL (2.2-4.0); Glucose, Blood 142.0 mg/dL (70-99); Potassium, Blood 4.7 mmol/L (3.5-5.5); Sodium, Blood 135.0 mmol/L (136-145); Total Protein, Blood 6.8 g/dL (6.4-8.2)
[2024-09-02] MEDS ORDERED: Formoterol/Mometasone MDI 5/200 mcg 13 GM INH SCH (05:35)
[2024-09-02] MEDS ORDERED: Tiotropium Bromide 2.5 MCG/ACT MIST INHAL (10 ACT/4 GM) INH SCH (05:35)
[2024-09-02] MEDS ORDERED: Albuterol 2.5 MG/3 ML VIAL INH PRN (05:35)
[2024-09-02 08:43] VITALS: BP 109/63
--- NOTE | 2024-09-02 08:44 | NUR ---
PT TO ROOM 215 FROM ED. TELE PLACED. PT IN RATE CONTROLLED AFIB 60BPM PER STRIKE OFF MACHINE OPERATOR. L HIP SHORTENED AND EXTERNALLY ROTATED. PT MADE NPO. LAST TOOK ELIQUIS LAST NOC. DR TERRY NOTIFIED OF ARRIVAL. VSS. FAMILY AT BEDSIDE. WILL CONTINUE TO MONITOR
--- NOTE | 2024-09-02 09:20 | NUR ---
SPOKE WITH DR. TERRY. PT STATES LAST DOSE OF ELIQUIS TAKEN YESTERDAY (09/01/24) PLAN WILL BE FOR PROCEDURE TOMORROW. PT NOTIFIED AND PROVIDED WITH ICE WATER. TOLERATING WELL.
[2024-09-02 11:52] VITALS: BP 113/54
[2024-09-02 15:01] VITALS: BP 109/71
--- NOTE | 2024-09-02 17:23 | NUR ---
shift summary pt resting. recently medicated for pain l hip. pt will be npo after midnight for surgery with Dr Hernandez in the AM.
[2024-09-02 19:46] VITALS: BP 120/62
[2024-09-03] VITALS (19 sets, daily range): BP systolic 75–120; BP diastolic 50–94
[2024-09-03 05:03] LABS: BASOPHILS ABSOLUTE AUTO 0.05 K/mm3 (0.00-0.23); BASOPHILS PERCENT AUTO 1 % (0-2); EOSINOPHILS ABSOLUTE AUTO 0.17 K/mm3 (0.00-0.68); EOSINOPHILS PERCENT AUTO 2 % (0-6); Hematocrit 41.0 % (37.0-53.0); Hemoglobin 12.9 g/dL (13.5-17.5); IMMATURE GRAN ABSOLUTE AUTO 0.04 K/mm3 (0.00-0.10); IMMATURE GRAN PERCENT AUTO 0 % (0-1); LYMPHOCYTES ABSOLUTE AUTO 1.05 K/mm3 (0.84-5.20); LYMPHOCYTES PERCENT AUTO 10 % (21-46); MONOCYTES ABSOLUTE AUTO 0.53 K/mm3 (0.16-1.47); MONOCYTES PERCENT AUTO 5 % (4-13); Mean Corpuscular HGB Conc 31.5 g/dL (31.5-36.5); Mean Corpuscular Volume 88 fL (80-100); NEUTROPHILS ABSOLUTE AUTO 8.98 K/mm3 (1.96-9.15); NEUTROPHILS PERCENT AUTO 83 % (41-73); NRBC ABSOLUTE 0.00 K/mm3 (0.00-0.02); NRBC Auto 0.0 /100 WBC (0.0-0.2); Platelet Count 250 K/mm3 (150-400); RDW Coefficient Variation 14.6 % (11.7-14.2); RDW Standard Deviation 47.1 fL (35.1-46.3)
[2024-09-03 05:26] LABS: Anion Gap 7.0 mmol/L (3-11); Blood Urea Nitrogen 18.0 mg/dL (8-24); CO2, Blood 29.0 mmol/L (21-32); Calcium, Blood 8.6 mg/dL (8.5-10.1); Chloride, Blood 102.0 mmol/L (98-108); Creatinine, Blood 0.77 mg/dL (0.60-1.20); Glucose, Blood 156.0 mg/dL (70-99); Potassium, Blood 4.5 mmol/L (3.5-5.5); Sodium, Blood 133.0 mmol/L (136-145)
--- NOTE | 2024-09-03 06:32 | NUR ---
MEDICATED PT PRN PER EMAR T/O NOC. WOULD MEDICATE PT PRIOR TO REPOSITIONING. THIS AM PT SLEPT SO SOUND THAT HE WAS INCONTINENT OF URINE IN THE BED. MEDICATED PT AND TOTAL BED CHANGE DONE BY SEVERAL RN'S AND CUT OFF SAWYER. PT SLEPT WELL WITH CPAP. POST PAIN MEDICATION PT WITH DIP DOWN IN HIGH 80'S THE COME RIGHT BACK UP TO MID 90'S. HAD BASIM RT COME ASSESS HIM. NPO SINCE MIDNIGHT. SURGERY SCHEDULED FOR 8 AM. WILL GIVE REPORT TO RN TAKING PT.
[2024-09-03] MEDS ORDERED: CeFAZolin Sodium 2,000 MG in NS 100 ML IV SCH (07:25)
[2024-09-03] MEDS ORDERED: Ropivacaine 0.5% HCl/Pf 123.125 MG,EPINEPHrine HCL 0.25 MG,Ketorolac Tromethamine 15 MG... INFIL SCH (07:25)
[2024-09-03] MEDS ORDERED: Tranexamic Acid 100 ML IV SCH (07:26)
[2024-09-03] MEDS ORDERED: FentaNYL Citrate 50 MCG/ML 2 ML Injection ONE (07:32)
[2024-09-03] MEDS ORDERED: Ondansetron HCl 2 MG / ML 2ML Vial IV PRN (07:55)
[2024-09-03] MEDS ORDERED: HYDROmorphone HCl/Pf 1MG SYR IV PRN (07:55)
[2024-09-03] MEDS ORDERED: FentaNYL Citrate 50 MCG/ML 2 ML Injection IV PRN ×2 (07:55)
[2024-09-03] MEDS ORDERED: Albuterol 2.5 MG/3 ML VIAL INH PRN ×2 (07:55)
--- NOTE | 2024-09-03 11:48 | NUR ---
PT TO ROOM 215. POST OP VS STARTED AND STABLE. IV TO TKO. NEW IV R FA PATENT. TEGADERM/GAUZE DRESSING TO LEFT ANTERIOR HIP. NO DRAINAGE NOTED. PT ABLE TO WIGGLE TOES, FULL SENSATION, AND DISTAL PULSES PALPABLE. PT DENIES PAIN. WILL CONTINUE TO MONITOR.
--- NOTE | 2024-09-03 12:56 | NUR ---
PORTABLE XRAY IN WITH PT.
--- NOTE | 2024-09-03 14:42 | NUR ---
PT ST CATHED FOR 600CC CLEAR YELLOW URINE. UNABLE TO VOID AFTER PACU. URINAL PLACED AT BEDSIDE. WILL CONTINUE TO MONITOR.
[2024-09-04 00:17] VITALS: BP 121/98
--- NOTE | 2024-09-04 01:27 | NUR ---
RN TO ROOM TO ROUND; PT SLEEPING WITH EQUAL AND UNLABORED BREATHING. CALL LIGHT WITHIN REACH.
--- NOTE | 2024-09-04 01:58 | NUR ---
RN WALKING BY ROOM, PT MOVING AROUND IN BED. RN ROUNDS ON PT AND HE REQUESTS FOOD. FOOD PROVIDED.
--- NOTE | 2024-09-04 02:26 | NUR ---
RN TO ROOM TO ROUND; PT SLEEPING. EQUAL AND UNLABORED BREATHING. CALL LIGHT WITHIN REACH.
--- NOTE | 2024-09-04 03:06 | NUR ---
CALL FROM [facility] WITH REPORT OF PT IN RVR. RN TO ROOM. PT REPORTS NO SYMPTOMS OF CHEST PAIN OR SHORTNESS OF BREATH. PT IS ATTEMPTING TO URINATE AT THIS TIME AND REPORTS THAT IS PROBABLY THE REASON FOR THE TELE CALL. CHARGE NURSE AWARE.
[2024-09-04 05:06] LABS: BASOPHILS ABSOLUTE AUTO 0.03 K/mm3 (0.00-0.23); BASOPHILS PERCENT AUTO 0 % (0-2); EOSINOPHILS ABSOLUTE AUTO 0.02 K/mm3 (0.00-0.68); EOSINOPHILS PERCENT AUTO 0 % (0-6); Hematocrit 34.2 % (37.0-53.0); Hemoglobin 11.0 g/dL (13.5-17.5); IMMATURE GRAN ABSOLUTE AUTO 0.06 K/mm3 (0.00-0.10); IMMATURE GRAN PERCENT AUTO 0 % (0-1); LYMPHOCYTES ABSOLUTE AUTO 0.86 K/mm3 (0.84-5.20); LYMPHOCYTES PERCENT AUTO 6 % (21-46); MONOCYTES ABSOLUTE AUTO 1.01 K/mm3 (0.16-1.47); MONOCYTES PERCENT AUTO 6 % (4-13); Mean Corpuscular HGB Conc 32.2 g/dL (31.5-36.5); Mean Corpuscular Volume 88 fL (80-100); NEUTROPHILS ABSOLUTE AUTO 13.75 K/mm3 (1.96-9.15); NEUTROPHILS PERCENT AUTO 87 % (41-73); NRBC ABSOLUTE 0.00 K/mm3 (0.00-0.02); NRBC Auto 0.0 /100 WBC (0.0-0.2); Platelet Count 210 K/mm3 (150-400); RDW Coefficient Variation 14.7 % (11.7-14.2); RDW Standard Deviation 47.5 fL (35.1-46.3)
--- NOTE | 2024-09-04 05:11 | NUR ---
SHIFT SUMMARY NO ACUTE CHANGES DURING NOC SHIFT. PT TOLERATING PO INTAKE. PT DRESSING REMAINS CDI AT THIS TIME. PT REPOSITIONED SELF DURING SHIFT.
[2024-09-04 05:24] LABS: Anion Gap 8.0 mmol/L (3-11); Blood Urea Nitrogen 19.0 mg/dL (8-24); CO2, Blood 28.0 mmol/L (21-32); Calcium, Blood 7.9 mg/dL (8.5-10.1); Chloride, Blood 103.0 mmol/L (98-108); Creatinine, Blood 0.79 mg/dL (0.60-1.20); Glucose, Blood 202.0 mg/dL (70-99); Potassium, Blood 4.4 mmol/L (3.5-5.5); Sodium, Blood 135.0 mmol/L (136-145)
[2024-09-04 07:15] VITALS: BP 112/56
--- NOTE | 2024-09-04 09:42 | NUR ---
THIS SOFTWARE VERIFICATION ENGINEER CAME ON SHIFT AND ROUNDED ON PATIENT.PATIENT STATED " I DONT HAVE MY DENTURES." RN NOTIFIED AND DIRECTOR OF RESIDENTIAL SERVICES MARIA.
[2024-09-04] MEDS ORDERED: DULERA 200 MCG-13 GM INH (10:51)
--- NOTE | 2024-09-04 11:46 | NUR ---
"Spiritual Care | Pt. Request Pt. is awake in bed and welcomes my visit. Pt. had just gotten off the phone with a loved one. Pt. is pleasanr and verbalizes that he is a man of bennett. Listen with care and interest. Considered matters of bennett and belief, Prayed with the Pt. Pt. verbalized gratitude for the spiritual care visit and welcomed this railway head tender to return."
[2024-09-04] MEDS ORDERED: Magnesium Hydroxide Conc 10 ML UDC PO PRN (13:15)
[2024-09-04 15:22] VITALS: BP 104/70
--- NOTE | 2024-09-04 16:43 | NUR ---
SUMMARY PT AXO4. VSS. L HIP SURGICAL SITE CDI TELFA DRESSING. USING LAYNE CPAP TO REST. IN AFIB BBB PER TELE. RVR EPISODES NOTED WITH ACTIVITY, GENERALLY 100'S HR. PT VOIDING SMALL AMOUNTS INTO URINAL. PT WORKED WITH PT WELL TODAY, AMBULATED. PLAN FOR SNF DC SOON PER CARE MANAGEMENT. OTHERWISE, PT RESTING IN BED. CALL LIGHT WTHIN REACH. BEING REPOSITONED WITH STAFF.
[2024-09-04 19:57] VITALS: BP 138/78
[2024-09-05 03:52] VITALS: BP 114/63
[2024-09-05 05:59] LABS: BASOPHILS ABSOLUTE AUTO 0.08 K/mm3 (0.00-0.23); BASOPHILS PERCENT AUTO 1 % (0-2); EOSINOPHILS ABSOLUTE AUTO 0.14 K/mm3 (0.00-0.68); EOSINOPHILS PERCENT AUTO 1 % (0-6); Hematocrit 38.9 % (37.0-53.0); Hemoglobin 12.3 g/dL (13.5-17.5); IMMATURE GRAN ABSOLUTE AUTO 0.06 K/mm3 (0.00-0.10); IMMATURE GRAN PERCENT AUTO 1 % (0-1); LYMPHOCYTES ABSOLUTE AUTO 1.29 K/mm3 (0.84-5.20); LYMPHOCYTES PERCENT AUTO 10 % (21-46); MONOCYTES ABSOLUTE AUTO 1.03 K/mm3 (0.16-1.47); MONOCYTES PERCENT AUTO 8 % (4-13); Mean Corpuscular HGB Conc 31.6 g/dL (31.5-36.5); Mean Corpuscular Volume 88 fL (80-100); NEUTROPHILS ABSOLUTE AUTO 10.49 K/mm3 (1.96-9.15); NEUTROPHILS PERCENT AUTO 80 % (41-73); NRBC ABSOLUTE 0.00 K/mm3 (0.00-0.02); NRBC Auto 0.0 /100 WBC (0.0-0.2); Platelet Count 229 K/mm3 (150-400); RDW Coefficient Variation 14.8 % (11.7-14.2); RDW Standard Deviation 48.2 fL (35.1-46.3)
[2024-09-05 06:29] LABS: Anion Gap 10.0 mmol/L (3-11); Blood Urea Nitrogen 17.0 mg/dL (8-24); CO2, Blood 28.0 mmol/L (21-32); Calcium, Blood 8.6 mg/dL (8.5-10.1); Chloride, Blood 102.0 mmol/L (98-108); Creatinine, Blood 0.8 mg/dL (0.60-1.20); Glucose, Blood 172.0 mg/dL (70-99); Potassium, Blood 4.7 mmol/L (3.5-5.5); Sodium, Blood 135.0 mmol/L (136-145)
--- NOTE | 2024-09-05 06:33 | NUR ---
SHIFT SUMMARY PT WITH SOME INCREASED TIREDNESS DURING SHIFT; PT WITH MODERATE CONFUSION FOR A PERIOD OF TIME DURING SHIFT. UPON WAKING THIS MORNING, PT IS A&OX4 AND DOES NOT RECALL HAVING THE EPISODE OF CONFUSION. PT WITH C/O PAIN AND MEDICATED PER EMAR. PT AFFECT AND MOOD MORE FLAT/SADDENED DURING THIS SHIFT THAN LAST NOC SHIFT WITH SAME NURSE.
[2024-09-05 07:10] VITALS: BP 129/84
[2024-09-05] MEDS ORDERED: Miconazole Nitrate 2% 85 GM PWD TOP SCH (09:00)
[2024-09-05] MEDS ORDERED: Cholecalciferol 1000 Unit Tablet (=25MCG) PO SCH (09:00)
[2024-09-05 11:21] VITALS: BP 96/63
[2024-09-05] MEDS ORDERED: Magnesium Hydroxide Conc 10 ML UDC PO PRN (15:35)
[2024-09-05 16:17] VITALS: BP 132/65
--- NOTE | 2024-09-05 18:09 | NUR ---
SUMMARY NO ACUTE CHANGES THIS SHIFT. VSS. REMAINS AFIB, INTERMITTENT SELF LIMITING RVR EPISODES WITH MAJOR ACTIVITY. HOME MEDS PER EMAR. PT WAS ON RA OR CPAP WHILE RESTING TODAY. PRESENTS MORE SOMNOLENT AND HAS BEEN NAPPING OFTEN. VOIDING WELL, BRIEFS HAD TO BE CHANGED A COUPLE TIMES. PHYSICAL THERAPY WORKED WITH PT, SUGGESTING SIT TO STAND LIFT PT IS DECONDITIONED. L HIP DRESSING CDI, LIGHT BRUISING NOTED. PT HAS REQUIRED MINIMAL PAIN MEDS TODAY DUE TO SOMNOLENCE. FAMILY IN ROOM UPDATED ON CARE. PT BEING REPOSITIONED BY STAFF. [facility]. CALL LIGHT WITHIN REACH.
[2024-09-05 18:57] VITALS: BP 130/92
[2024-09-06 00:10] VITALS: BP 111/70
--- NOTE | 2024-09-06 02:09 | NUR ---
PT RESTLESS, REPOSITIONED PT WITH TWO PILLOWS ON LT SIDE APPROX 30 MIN AGO. CHECKED ON PT STILL RESTLESS AND HE WAS ATTEMPTING TO GET A DRINK OF WATER. STRAW WAS MISSING. ASSISTED PT WITH A COUPLE DRINKS OF WATER. I ASKED PT IF HE NEEDED A PAIN PILL, HE REPLIED "YES." GIVEN. REPOSITIONED ON TO THE RIGHT SIDE AT THIS TIME USING 2 PILLOWS UNDER LT SIDE. FRESH ICE WATER GIVEN. CALL LIGHT IN REACH AND BED IN LOWEST POSITION.
[2024-09-06 03:45] VITALS: BP 128/94
[2024-09-06 07:23] VITALS: BP 117/65
[2024-09-06 09:40] LABS: CORONAVIRUS COVID-19 AG Negative (NEGATIVE)
--- NOTE | 2024-09-06 10:56 | NUR ---
ASSUMED CARE OF PT @0700 PT AXO 2-3. SLOW TO RESPOND BUT MORE ALERT AND CONVERSIVE THAN LAST DAY SHIFT. AFIB 120'S UPON ASSUMPTION, 100'S HR POST METOPROLOL. VOIDING IN URINAL. PER REPORT, PT HAD BM LAST NOC SHIFT. L HIP DRESSING CDI. TOLERATED PO PILLS WELL THIS AM. WEAK/DECONDITIONED. WORKED WITH PHYSICAL THERAPY - CONTINUE TO RECOMMEND SIT TO STAND LIFT. PTAWARE THAT HE IS DISCHARGING TO [facility] TODAY. CALLED REPORT TO MEME RAINES AT [facility] @1100. AWAITING TRANSPORTATION NOW.
--- NOTE | 2024-09-06 11:24 | NUR ---
PT DC'D AT 1124 VIA [facility] TO [place] [facility]. BELONGINGS WITH PT. VSS. IV PULLED OUT. PT OUT OF FACILITY WITH AMBULANCE STAFF.
== END 2024-09-06 11:25 | DRG 522 ==
LOC: ER 03:36 → ERHOLD 05:04 → SURS 05:04
PROVIDERS: Emergency Medicine; Orthopaedic Surgery; Student in an Organized Health Care Education/Training Program; ADMIT Internal Medicine
PROC: 5A09357 Assistance with Respiratory Ventilation, Less than 24 Consecutive Hours, Continuous Positive Airway Pressure (ICD-10-PCS; 2024-09-02)
PROC: 0SRS01Z Replacement of Left Hip Joint, Femoral Surface with Metal Synthetic Substitute, Open Approach (ICD-10-PCS; principal; 2024-09-03 08:00)
DX: S72.002A Fracture of unspecified part of neck of left femur, initial encounter for closed fracture (principal); E87.1 Hypo-osmolality and hyponatremia; N39.0 Urinary tract infection, site not specified; R78.81 Bacteremia; D64.9 Anemia, unspecified; I48.91 Unspecified atrial fibrillation; J44.9 Chronic obstructive pulmonary disease, unspecified; Z66 Do not resuscitate; R29.6 Repeated falls; G47.33 Obstructive sleep apnea (adult) (pediatric); E11.42 Type 2 diabetes mellitus with diabetic polyneuropathy; B96.5 Pseudomonas (aeruginosa) (mallei) (pseudomallei) as the cause of diseases classified elsewhere; W18.39XA Other fall on same level, initial encounter; Y92.009 Unspecified place in unspecified non-institutional (private) residence as the place of occurrence of the external cause; Z79.01 Long term (current) use of anticoagulants; Z79.84 Long term (current) use of oral hypoglycemic drugs; Z79.82 Long term (current) use of aspirin; Z85.51 Personal history of malignant neoplasm of bladder; Z87.891 Personal history of nicotine dependence; Z95.818 Presence of other cardiac implants and grafts
CPT/HCPCS: 36415; 70450; 71045; 73502; 80048; 80053; 82947; 85025; 85610; 85730; 87426-QW; 93005; 93010; 94640; 94664; 94762; 97110; 97161; 97530; 99285-25; A9270; C1776; J0165; J0690; J0735; J1885; J2704; J2795; J3010